=== PATIENT | female | born 1940 | race Caucasian/White ===

== ENCOUNTER 2017-05-26 06:42 | Emergency (ER) | payer MEDICARE, BC ==
[2017-05-26] MEDS ORDERED: NS 0.9% 1000 ML* 1,000 ML IV ONE (07:19)
[2017-05-26] MEDS ORDERED: Albuterol/Ipratropium NEB.SOL* Albuterol 2.5 MG/Ipratropium 0.5 MG 3 ML INH ONE ×2 (07:20→09:30)
[2017-05-26 08:08] LABS: ABS Basophils 0 10^3/ul (0-0.2); ABS Eosinophils 0.4 10^3/ul (0-0.6); ABS Lymphocytes 1.4 10^3/ul (1.0-4.8); ABS Monocytes 0.5 10^3/ul (0-0.8); ABS Neutrophils 2.3 10^3/ul (1.5-7.7); ABS Nucleated RBC 0 10^3/ul; Eosinophil % 7.6 % (0-6); Hematocrit 39 % (35-47); Hemoglobin 13.5 g/dl (12.0-16.0); Lymphocyte % 30.7 % (25-47); Mean Corpuscular HGB Conc 35 g/dl (31-36); Mean Corpuscular Hemoglobin 35 pg (27-31); Mean Corpuscular Volume 99 fL (80-97); Mean Platelet Volume 8 um3 (7.4-10.4); Nucleated Red Blood Cells % 0.1; Platelet Count 120 10^3/ul (150-450); Red Cell Distribution Width 13 % (10.5-15); White Blood Count 4.7 10^3/ul (3.5-10.8)
[2017-05-26 08:30] LABS: EGFR Non-African American 62.3 (>60)
--- NOTE | 2017-05-26 08:37 | RAD ---
Indication: Shortness of breath. Comparison is made with previous exam dated September 14, 2015. 2 views of the chest including dual energy PA views demonstrate no mediastinal shift. Heart is of normal size and configuration. Lung villa demonstrate no pleural, pneumonia or pneumothorax. IMPRESSION: No active cardiopulmonary disease is noted.
[2017-05-26] MEDS ORDERED: methylPREDNISolone 125 MG* 2 ML VIAL IV ONE (09:30)
[2017-05-26] MEDS ORDERED: Albuterol/Ipratropium NEB.SOL* Albuterol 2.5 MG/Ipratropium 0.5 MG 3 ML ONE (09:54)
[2017-05-26 12:12] VITALS: BP 142/77
--- NOTE | 2017-05-26 12:29 | ED ---
David Smith Stephanie, scribed for Quang Ball MD on 05/26/17 at 0743 . Respiratory - HPI Summary HPI Summary: The pt is a 76 y/o F presenting to the ED with c/o cough that began yesterday. The pt reports coughing up fluid that looks like white bubbles since yesterday. This morning, she saw some discolored mucus that came up with her cough. Symptoms include a productive cough, SOB, fever. Pt fell last June 23 and her larynx got constricted post fall. - History of Current Complaint Chief Complaint: EDGeneral Stated Complaint: RESPIRATORY COMPLAINT Time Seen by Provider: 05/26/17 07:07 Hx Obtained From: Patient Onset/Duration: Lasting Days - 1, Still Present Timing: Constant Current Severity: Moderate Pain Intensity: 1 Character: Cough (Productive) Sputum Color: Clear Aggravating Factor(s): Nothing Alleviating Factor(s): Nothing Associated Signs and Symptoms: Fever, SOB - Allergy/Home Medications Allergies/Adverse Reactions: Allergies Allergy/AdvReac Type Severity Reaction Status Date / Time Bee Venom Allergy Severe Anaphylatic Verified 09/14/15 07:36 Shock Oxycodone Allergy Hallucinati Verified 09/14/15 07:36 ons HONEY BEES,WASPS, HORNETS Allergy ANAPHYLACTI Uncoded 09/14/15 07:36 C PMH/Surg Hx/FS Hx/Imm Hx Cardiovascular History: Reports: Hx Hypertension Denies: Hx Pacemaker/ICD Respiratory History: Reports: Hx Asthma, Hx Chronic Obstructive Pulmonary Disease (COPD) - asthma, Other Respiratory Problems/Disorders - MULTIPLE SINUS INFECTIONS Musculoskeletal History: Reports: Hx Arthritis - BILATERAL KNEES, HANDS, NECK, BACK, Hx Fibromyalgia Sensory History: Reports: Hx Contacts or Glasses Denies: Hx Hearing Aid Opthamlomology History: Reports: Hx Contacts or Glasses Neurological History: Reports: Other Neuro Impairments/Disorders - HX OF POLIO 1954 Psychiatric History: Reports: Hx Depression - ON MEDICATION Denies: Hx Panic Disorder - Cancer History Cancer Type, 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 1998 LEFT BREAST SURGERY, INSITU, [facility] [place]. 1999 RIGHT KNEE ARTHROSCOPIC SURGERY, [facility] [place]. 2003 HEART CATHERIZATION, [facility]. 2004 LEFT HAND / INDEX FINGER SURGERY FOR DOG BITE, [facility] [place]. 2004 RIGHT FOOT SURGERY WITH 3 SCREWS. 2006 LEFT KNEE ARTHROSCOPIC SURGERY, [facility] [place]. 2005 FULL SHOULDER REPLACEMENT, [facility]. 2010 RIGHT KNEE ARTHROSCOPIC SURGERY , [facility] [place] Hx Anesthesia Reactions: Yes - DISLOCATION OF JAW WITH INTUBATION, 1973, 2005, 2010 Infectious Disease History: No Infectious Disease History: Reports: Hx Hepatitis - 9 - NO PROBLEMS SINCE, Hx Shingles Denies: Traveled Outside the [place] in Last 30 Days - Family History Known Family History: Positive: Cardiac Disease, Other - Negative: CVA Negative: Diabetes - Social History Alcohol Use: Daily Alcohol Amount: 2-3 drinks per day Hx Substance Use: No Substance Use Type: Reports: None Smoking Status (MU): Never Smoked Tobacco Review of Systems Positive: Fever Positive: Shortness Of Breath, Cough All Other Systems Reviewed And Are Negative: Yes Physical Exam - Summary Physical Exam Summary: Appearance: The patient is well-nourished in no acute distress and in no acute pain. Skin: The skin is warm and dry and skin color reflects adequate perfusion. HEENT: The head is normocephalic and atraumatic. The pupils are equal and reactive. The conjunctivae are clear and without drainage. Nares are patent and without drainage. Mouth reveals moist mucous membranes and the throat is without erythema and exudate. The external ears are intact. The ear canals are patent and without drainage. The tympanic membranes are intact. Neck: the neck is supple with full range of motion and non-tender. There are no carotid bruits. There is no neck vein distension. Respiratory: Chest is non-tender. Decreased breaths sounds with increased E/ I ration. Non-expiratory wheezes. Cardiovascular: Heart is regular rate and rhythm. There is no murmur or rub auscultated. There is no peripheral edema and pulses are symmetrical and equal. Abdomen: The abdomen is soft and non-tender. There are normal bowel sounds heard in all four quadrants and there is no organomegaly palpated. Musculoskeletal: There is no back tenderness noted. Extremities are non-tender with full range of motion. There is good capillary refill. There is no peripheral edema or calf tenderness elicited. Neurological: Patient is alert and oriented to person, place and time. The patient has symmetrical motor strength in all four extremities. Cranial nerves are grossly intact. Deep tendon reflexes are symmetrical and equal in all four extremities. Psychiatric: The patient has an appropriate affect and does not exhibit any anxiety or depression. Triage Information Reviewed: Yes Vital Signs On Initial Exam: Initial Vitals Temp Pulse Resp BP Pulse Ox 97.1 F 57 22 133/99 88 05/26/17 06:45 05/26/17 06:45 05/26/17 06:45 05/26/17 06:45 05/26/17 06:45 Vital Signs Reviewed: Yes - Demar Coma Scale Coma Scale Total: 15 Diagnostics - Vital Signs Vital Signs Temp Pulse Resp BP Pulse Ox 05/26/17 06:45 97.1 F 57 22 133/99 88 - Laboratory Lab Results: Lab Results 05/26/17 05/26/17 05/26/17 Range/Units 07:50 07:50 07:50 WBC 4.7 (3.5-10.8) 10^3/ul RBC 3.90 L (4.0-5.4) 10^6/ul Hgb 13.5 (12.0-16.0) g/dl Hct 39 (35-47) % MCV 99 H (80-97) fL MCH 35 H (27-31) pg MCHC 35 (31-36) g/dl RDW 13 (10.5-15) % Plt Count 120 L (150-450) 10^3/ul MPV 8 (7.4-10.4) um3 Neut % (Auto) 49.4 (38-83) % Lymph % (Auto) 30.7 (25-47) % [place] % (Auto) 11.6 H (1-9) % Eos % (Auto) 7.6 H (0-6) % Baso % (Auto) 0.7 (0-2) % Absolute Neuts (auto) 2.3 (1.5-7.7) 10^3/ul Absolute Lymphs (auto) 1.4 (1.0-4.8) 10^3/ul Absolute Monos (auto) 0.5 (0-0.8) 10^3/ul Absolute Eos (auto) 0.4 (0-0.6) 10^3/ul Absolute Basos (auto) 0 (0-0.2) 10^3/ul Absolute Nucleated RBC 0 10^3/ul Nucleated RBC % 0.1 Sodium 135 (133-145) mmol/L Potassium 4.5 (3.5-5.0) mmol/L Chloride 104 (101-111) mmol/L Carbon Dioxide 21 L (22-32) mmol/L Anion Gap 10 (2-11) mmol/L BUN 26 H (6-24) mg/dL Creatinine 0.88 (0.51-0.95) mg/dL Est GFR ( Amer) 80.1 (>60) Est GFR (Non-Af Amer) 62.3 (>60) BUN/Creatinine Ratio 29.5 H (8-20) Glucose 104 H (70-100) mg/dL Lactic Acid (0.5-2.0) mmol/L Calcium 9.1 (8.6-10.3) mg/dL Total Bilirubin 0.60 (0.2-1.0) mg/dL AST 20 (13-39) U/L ALT 16 (7-52) U/L Alkaline Phosphatase 64 (34-104) U/L Troponin I 0.00 (<0.04) ng/mL B-Natriuretic Peptide 27 ( - 100) pg/mL Total Protein 6.3 L (6.4-8.9) g/dL Albumin 3.9 (3.2-5.2) g/dL Globulin 2.4 (2-4) g/dL Albumin/Globulin Ratio 1.6 (1-3) Influenza A (Rapid) (Negative) Influenza B (Rapid) (Negative) Group A Strep Rapid (Negative) 05/26/17 05/26/17 05/26/17 Range/Units 07:50 08:05 11:32 WBC (3.5-10.8) 10^3/ul RBC (4.0-5.4) 10^6/ul Hgb (12.0-16.0) g/dl Hct (35-47) % MCV (80-97) fL MCH (27-31) pg MCHC (31-36) g/dl RDW (10.5-15) % Plt Count (150-450) 10^3/ul MPV (7.4-10.4) um3 Neut % (Auto) (38-83) % Lymph % (Auto) (25-47) % [place] % (Auto) (1-9) % Eos % (Auto) (0-6) % Baso % (Auto) (0-2) % Absolute Neuts (auto) (1.5-7.7) 10^3/ul Absolute Lymphs (auto) (1.0-4.8) 10^3/ul Absolute Monos (auto) (0-0.8) 10^3/ul Absolute Eos (auto) (0-0.6) 10^3/ul Absolute Basos (auto) (0-0.2) 10^3/ul Absolute Nucleated RBC 10^3/ul Nucleated RBC % Sodium (133-145) mmol/L Potassium (3.5-5.0) mmol/L Chloride (101-111) mmol/L Carbon Dioxide (22-32) mmol/L Anion Gap (2-11) mmol/L BUN (6-24) mg/dL Creatinine (0.51-0.95) mg/dL Est GFR ( Amer) (>60) Est GFR (Non-Af Amer) (>60) BUN/Creatinine Ratio (8-20) Glucose (70-100) mg/dL Lactic Acid 1.2 (0.5-2.0) mmol/L Calcium (8.6-10.3) mg/dL Total Bilirubin (0.2-1.0) mg/dL AST (13-39) U/L ALT (7-52) U/L Alkaline Phosphatase (34-104) U/L Troponin I (<0.04) ng/mL B-Natriuretic Peptide ( - 100) pg/mL Total Protein (6.4-8.9) g/dL Albumin (3.2-5.2) g/dL Globulin (2-4) g/dL Albumin/Globulin Ratio (1-3) Influenza A (Rapid) Negative (Negative) Influenza B (Rapid) Negative (Negative) Group A Strep Rapid Negative (Negative) Result Diagrams: 05/26/17 07:50 05/26/17 07:50 Lab Statement: Any lab studies that have been ordered have been reviewed, and results considered in the medical decision making process. - Radiology CXR Xray Interpretation: No Acute Changes Radiology Interpretation Completed By: Radiologist - No active cardiopulmonary disease is noted. - EKG 06:55 EKG Rhythm: Sinus Rhythm - 89 BPM EKG Interpretation: horizontal axis. Old septal infarct. Disposition - Course Course Of Treatment: Follow up with PCP. Assessment/Plan: Ms. Renae presented with a variety of URI-type C/O. Her breathing was tight with an increased E/I. She was treated with nebs and solumedrol and eventually felt improved. I willl D/C her with antibiotics and a steroid burst. - Diagnoses Provider Diagnoses: Bronchospasm with bronchitis, acute Discharge - Discharge Plan Condition: Stable Disposition: HOME Prescriptions: Albuterol HFA INHALER* [Ventolin HFA Inhaler*] 1 puff INH Q4H PRN #1 inhaler PRN Reason: Shortness Of Breath Clarithromycin TAB* [Biaxin TAB*] 500 mg PO BID #20 tab Methylprednisolone [Medrol Dosepak 4 MG*] 4 mg PO .SEE BORIS INSTRUCTION #1 tab Patient Education Materials: Acute Bronchitis (ED), Bronchospasm (ED) Referrals: Carlos Fernández MD [Primary Care Provider] - The documentation as recorded by the David harrell Stephanie accurately reflects the service I personally performed and the decisions made by , Quang Ball MD.
== END 2017-05-26 12:16 | disposition home or self-care (01) ==
LOC: ED 06:42
DX: J20.9 Acute bronchitis, unspecified (principal); R50.9 Fever, unspecified; R06.02 Shortness of breath; I10 Essential (primary) hypertension; J44.9 Chronic obstructive pulmonary disease, unspecified; F32.9 Major depressive disorder, single episode, unspecified; Z85.3 Personal history of malignant neoplasm of breast; Z96.619 Presence of unspecified artificial shoulder joint; Z88.5 Allergy status to narcotic agent
CPT/HCPCS: 36415; 71046; 80053; 83605; 83880; 84484; 85025; 87040; 87502; 87651; 93005; 94640; 96361; 96374; 99283; A9270-GY; J2930

== ENCOUNTER 2017-12-02 15:44 | Emergency (ER) | payer MEDICARE, BC ==
[2017-12-02] MEDS ORDERED: Cephalexin CAP* 500 MG PO ONE (16:12)
[2017-12-02] MEDS ORDERED: Tetan/Diph/Pertus SYR(Tdap)* 0.5 ML SYR(BOOSTRIX) use SYR IM ONE (16:12)
--- NOTE | 2017-12-02 18:16 | ED ---
Laceration/Wound HPI - HPI Summary HPI Summary: Complains of laceration to right forearm. Patient was trying to put something up on a shelf and caught her arm on an exposed nail she did not know was there. Tetanus status unknown. No anti-coag. Denies loss of sensation or function distally. - History of Current Complaint Stated Complaint: LAC ON RT ARM Time Seen by Provider: 12/02/17 17:26 Hx Obtained From: Patient Mechanism of Injury: Sharp/Blunt Trauma Onset Severity: Mild Current Severity: None Pain Intensity: 0 - Allergy/Home Medications Allergies/Adverse Reactions: Allergies Allergy/AdvReac Type Severity Reaction Status Date / Time oxycodone Allergy Altered Verified 12/02/17 16:01 Mental Status PMH/Surg Hx/FS Hx/Imm Hx Endocrine/Hematology History: Denies: Hx Anticoagulant Therapy Cardiovascular History: Reports: Hx Hypertension Denies: Hx Pacemaker/ICD Respiratory History: Reports: Hx Asthma, Hx Chronic Obstructive Pulmonary Disease (COPD) - asthma, Other Respiratory Problems/Disorders - MULTIPLE SINUS INFECTIONS Musculoskeletal History: Reports: Hx Arthritis - BILATERAL KNEES, HANDS, NECK, BACK, Hx Fibromyalgia Sensory History: Reports: Hx Contacts or Glasses Denies: Hx Hearing Aid Opthamlomology History: Reports: Hx Contacts or Glasses Neurological History: Reports: Other Neuro Impairments/Disorders - HX OF POLIO 1953 Psychiatric History: Reports: Hx Depression - ON MEDICATION Denies: Hx Panic Disorder - Cancer History Cancer Type, 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 1998 LEFT BREAST SURGERY, [facility], [facility] [place]. 1999 RIGHT KNEE ARTHROSCOPIC SURGERY, [facility] [place]. 2003 HEART CATHERIZATION, [facility]. 2004 LEFT HAND / INDEX FINGER SURGERY FOR DOG BITE, [facility] [place]. 2004 RIGHT FOOT SURGERY WITH 3 SCREWS. 2006 LEFT KNEE ARTHROSCOPIC SURGERY, [facility] [place]. 2006 FULL SHOULDER REPLACEMENT, [facility]. 2010 RIGHT KNEE ARTHROSCOPIC SURGERY , [facility] [place] Hx Anesthesia Reactions: Yes - DISLOCATION OF JAW WITH INTUBATION, 1973, 2005, 2010 Infectious Disease History: No Infectious Disease History: Reports: Hx Hepatitis - 1958 - NO PROBLEMS SINCE, Hx Shingles Denies: Traveled Outside the [place] in Last 30 Days - Family History Known Family History: Positive: Cardiac Disease, Other - Negative: CVA Negative: Diabetes - Social History Alcohol Use: None Alcohol Amount: 2-3 drinks per day Hx Substance Use: No Substance Use Type: Reports: None Smoking Status (MU): Never Smoked Tobacco Review of Systems Constitutional: Negative Eyes: Negative ENT: Negative Cardiovascular: Negative Respiratory: Negative Gastrointestinal: Negative Genitourinary: Negative Musculoskeletal: Negative Skin: Other Neurological: Negative Psychological: Normal All Other Systems Reviewed And Are Negative: Yes Physical Exam - Summary Physical Exam Summary: Small puncture wound to the dorsal surface of right forearm. PMS intact distally Triage Information Reviewed: Yes Vital Signs On Initial Exam: Initial Vitals Temp Pulse Resp BP Pulse Ox 98.3 F 90 16 172/93 98 12/02/17 15:58 12/02/17 15:58 12/02/17 15:58 12/02/17 15:58 12/02/17 15:58 Vital Signs Reviewed: Yes Appearance: Positive: Well-Appearing Skin: Positive: Warm Head/Face: Positive: Normal Head/Face Inspection Eyes: Positive: Normal Neck: Positive: Supple Respiratory/Lung Sounds: Positive: Clear to Auscultation Cardiovascular: Positive: Normal Abdomen Description: Positive: Nontender Musculoskeletal: Positive: Normal Neurological: Positive: Normal Psychiatric: Positive: Normal AVPU Assessment: Alert - Demar Coma Scale Best Eye Response: 4 - Spontaneous Best Motor Response: 6 - Obeys Commands Best Verbal Response: 5 - Oriented Coma Scale Total: 15 Procedures - Laceration/Wound Repair 1 Location: upper extremity Description: Stellate Length, Depth and Shape: 1cm x 1cm Betadine Prep?: No - chlorhexidine prep Irrigated w/ Saline (ccs): 20 - chlorhexidine plus saline Laceration/Wound Explored: clean Closure: SteriStrips Number of Sutures: 0 Layer Closure?: No Diagnostics - Vital Signs Vital Signs Temp Pulse Resp BP Pulse Ox 12/02/17 16:53 98.3 F 108 18 178/86 12/02/17 15:58 98.3 F 90 16 172/93 98 - Laboratory Lab Statement: Any lab studies that have been ordered have been reviewed, and results considered in the medical decision making process. Laceration Repair Course/Dx - Course Course Of Treatment: Complains of laceration to right forearm. Patient was trying to put something up on a shelf and caught her arm on an exposed nail she did not know was there. Tetanus status unknown. No anti-coag. Denies loss of sensation or function distally. Small puncture wound. Wound cleaned under pressure with chlorhexidine and saline. Steri-Strips applied. tetanus booster. rx for keflex - Clinical Impression Provider Diagnoses: Laceration Discharge - Sign-Out/Discharge Documenting (check all that apply): Patient Departure - Discharge Plan Condition: Stable Disposition: HOME Prescriptions: Cephalexin CAP* [Keflex CAP*] 500 mg PO TID 5 Days #15 cap Patient Education Materials: Laceration (ED) Referrals: Carlos Fernández MD [Primary Care Provider] - Additional Instructions: Follow up with primary care. Take antibiotics as directed. Return to ED for any new or worsening symptoms. - Billing Disposition and Condition Condition: STABLE Disposition: Home
[2017-12-02 18:34] VITALS: BP 172/88
== END 2017-12-02 18:32 | disposition home or self-care (01) ==
LOC: ED 15:44
DX: S51.811A Laceration without foreign body of right forearm, initial encounter (principal); W45.0XXA Nail entering through skin, initial encounter; Y92.9 Unspecified place or not applicable; Z23 Encounter for immunization; Z88.5 Allergy status to narcotic agent
CPT/HCPCS: 90471; 90715; 99282; A9270-GY

== ENCOUNTER 2018-05-15 07:56 | Emergency (ER) | payer BC, MEDICARE ==
[2018-05-15] MEDS ORDERED: predniSONE TAB* 20 MG PO ONE (08:50)
[2018-05-15] MEDS ORDERED: Acetaminophen TAB* 325 MG PO ONE (08:50)
[2018-05-15] MEDS ORDERED: Ketorolac INJ* 60 MG/2 ML VIAL IM ONE (08:50)
--- NOTE | 2018-05-15 08:59 | ED ---
Back Pain - HPI Summary HPI Summary: Pt here a/ acute on chronic lower back/hip pain. She has been dx'd w/ OA here ( XR's from 04/03/2018 available in system - ordered by Dr. Navarrete). Has been using topical diclofenac and naproxen BID - provides relief for a couple of hours but then pain returns. Difficulty sleeping last night d/t pain - slept in recliner. She is able to ambulate w/ a cane but is painful. Pain radiates down into feet. Denies numbness, tingling, weakness or change in bowel/bladder habits other than constipation. She has discussed her constipation w/ her PCP who rx'd meds - she has not tried these yet but plans to do so. She has been able to toilet and eat on her own and has a friend who helps her with shopping and light cleaning. She has a fall alert bracelet as well as she lives alone. - History of Current Complaint Chief Complaint: EDBackInjuryPain Stated Complaint: LOWER Back Time Seen by Provider: 05/15/18 08:14 Hx Obtained From: Patient Pain Intensity: 10 - Allergies/Home Medications Allergies/Adverse Reactions: Allergies Allergy/AdvReac Type Severity Reaction Status Date / Time oxycodone Allergy Altered Verified 05/15/18 08:05 Mental Status Home Medications: Home Medications Cyclobenzaprine TAB* [Flexeril 10 MG TAB*] 10 mg PO DAILY 05/15/18 [History Confirmed 05/15/18] Duloxetine HCl [Cymbalta] 10 mg PO DAILY 05/15/18 [History Confirmed 05/15/18] Fluticasone/Vilanterol MDI(NF) [Breo Ellipta MDI 200/25(NF)] 1 puff .ROUTE DAILY 05/15/18 [History Confirmed 05/15/18] Omeprazole 20 mg PO DAILY 05/15/18 [History Confirmed 05/15/18] Ranitidine TAB (NF) [Zantac TAB (NF)] 150 mg PO BID 05/15/18 [History Confirmed 05/15/18] PMH/Surg Hx/FS Hx/Imm Hx Previously Healthy: Yes Endocrine/Hematology History: Denies: Hx Anticoagulant Therapy Cardiovascular History: Reports: Hx Hypertension - well controlled per pt w/o med Denies: Hx Pacemaker/ICD Respiratory History: Reports: Hx Asthma - uses inhaled medications, Other Respiratory Problems/Disorders - MULTIPLE SINUS INFECTIONS Musculoskeletal History: Reports: Hx Arthritis - BILATERAL KNEES, HANDS, NECK, BACK, Hips, Hx Fibromyalgia Sensory History: Reports: Hx Contacts or Glasses Denies: Hx Hearing Aid Opthamlomology History: Reports: Hx Contacts or Glasses Neurological History: Reports: Other Neuro Impairments/Disorders - HX OF POLIO 1953 Psychiatric History: Reports: Hx Depression - ON MEDICATION Denies: Hx Panic Disorder - Cancer History Cancer Type, 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 1998 LEFT BREAST SURGERY, [facility], [facility] [place] 1999 RIGHT KNEE ARTHROSCOPIC SURGERY, [facility] [place]. 2003 HEART CATHERIZATION, [facility]. 2004 LEFT HAND / INDEX FINGER SURGERY FOR DOG BITE, [facility] [place]. 2004 RIGHT FOOT SURGERY WITH 3 SCREWS. 2005 LEFT KNEE ARTHROSCOPIC SURGERY, [facility] [place]. 2005 FULL SHOULDER REPLACEMENT, [facility]. 2010 RIGHT KNEE ARTHROSCOPIC SURGERY , [facility] [place] Hx Anesthesia Reactions: Yes - DISLOCATION OF JAW WITH INTUBATION, 1973, 2005, 2010 Infectious Disease History: No Infectious Disease History: Reports: Hx Hepatitis - 1958 - NO PROBLEMS SINCE, Hx Shingles Denies: Traveled Outside the [place] in Last 30 Days - Family History Known Family History: Positive: Cardiac Disease, Other - Negative: CVA Negative: Diabetes - Social History Occupation: Retired Lives: Alone Alcohol Use: Daily Alcohol Amount: 2-3 drinks per day Hx Substance Use: No Substance Use Type: Reports: None Hx Tobacco Use: No Smoking Status (MU): Never Smoked Tobacco Review of Systems Constitutional: Negative Negative: Fever, Chills, Fatigue Eyes: Negative ENT: Negative Cardiovascular: Negative Respiratory: Negative Gastrointestinal: Other - constipation Genitourinary: Negative Positive: Arthralgia, Myalgia Skin: Negative Neurological: Negative Psychological: Normal - concerned but calm All Other Systems Reviewed And Are Negative: Yes Physical Exam Triage Information Reviewed: Yes Vital Signs On Initial Exam: Initial Vitals Temp Pulse Resp BP Pulse Ox 98.6 F 91 18 140/84 97 05/15/18 07:57 05/15/18 07:57 05/15/18 07:57 05/15/18 07:57 05/15/18 07:57 Vital Signs Reviewed: Yes Appearance: Positive: Well-Appearing, Well-Nourished, Pain Distress - none at rest - mild to moderate with palpation Skin: Positive: Warm, Skin Color Reflects Adequate Perfusion, Dry - no ecchymosis, no erythema, no lesions or edema about affected area Head/Face: Positive: Normal Head/Face Inspection Eyes: Positive: EOMI ENT: Positive: Hearing grossly normal Respiratory/Lung Sounds: Positive: Breath Sounds Present Cardiovascular: Positive: Pulses are Symmetrical in both Upper and Lower Extremities. Negative: Leg Edema Left, Leg Edema Right Musculoskeletal: Positive: Strength/ROM Intact, Pain @ - Lt SI joint TTP - spinous pp, Rt SI joint/hip and paraspinal mm are NTTP; pt is able to transition from lying on stretcher to sitting on stretcher to standing w/o assistance Neurological: Positive: Normal, Sensory/Motor Intact, Alert, Oriented to Person Place, Time, CN Intact II-III Psychiatric: Positive: Normal - concerned but polite, pleasant, and cooperative Diagnostics - Vital Signs Vital Signs Temp Pulse Resp BP Pulse Ox 05/15/18 07:57 98.6 F 91 18 140/84 97 - Laboratory Lab Statement: Any lab studies that have been ordered have been reviewed, and results considered in the medical decision making process. Re-Evaluation - Re-Evaluation First Eval Change: Improved - pt reports improvement w/ most movements Back Pain Course/Dx - Course Course Of Treatment: No imaging performed as pt reports this is an acute on chronic issue. She has an XR from last month + for OA in affected area. Relief w / prednisone, toradol and acetaminophen. Will continue NSAID's at home and add steroid to her regimen. She reports she doesn't currently take flexeril but has taken them in the past and would like to try again in case sleep at night becomes an issues. She agrees to f/u w/ PCP and ortho and will return to ED if danger s/sx present. - Diagnoses Provider Diagnoses: Acute exacerbation of chronic low back pain, Hip arthritis Discharge - Sign-Out/Discharge Documenting (check all that apply): Patient Departure - Discharge Plan Condition: Stable Disposition: HOME Prescriptions: Cyclobenzaprine TAB* [Flexeril 10 MG TAB*] 10 mg PO BEDTIME #15 tab predniSONE TAB* [Deltasone 20 MG TAB*] 40 mg PO DAILY #10 tab Patient Education Materials: Osteoarthritis (ED) Referrals: Carlos Fernández MD [Primary Care Provider] - Additional Instructions: Take medications as directed Follow-up with PCP this week - call Tuesday to schedule an appointment *If you have difficulty toileting or feeding yourself, you may contact [facility] at *If you have numbness, tingling, weakness or change in bowel/bladder habits, return to the ED - Billing Disposition and Condition Condition: STABLE Disposition: Home
[2018-05-15 10:39] VITALS: BP 138/85
== END 2018-05-15 10:38 | disposition home or self-care (01) ==
LOC: ED 07:56
DX: M54.5 Low back pain (principal); G89.29 Other chronic pain; M25.559 Pain in unspecified hip; I10 Essential (primary) hypertension; M16.10 Unilateral primary osteoarthritis, unspecified hip
CPT/HCPCS: 96372; 99282; A9270-GY; J1885; J7512

== ENCOUNTER 2018-11-18 06:42 | Emergency (ER) | payer MEDICARE, BC ==
[2018-11-18] MEDS ORDERED: Ibuprofen TAB* 600 MG PO ONE (07:49)
[2018-11-18 08:09] VITALS: BP 158/103
--- NOTE | 2018-11-18 12:17 | ED ---
Lower Extremity - HPI Summary HPI Summary: Patient is a 78yo female who presents to the ED with left toe pain. She states she had bunion surgery to the right toe and this feels similar. She states she needs surgery to the left bunion as well and this is the location of the pain, however she states she's been unable to deal with the pain at home with Tylenol with past few days. She is requesting pain medication. She denies any history of gout. She endorses some redness to the area, but denies any streaking or other ecchymosis. Denies any trauma. - History of Current Complaint Chief Complaint: EDExtremityLower Stated Complaint: LEFT FOOT PAIN PER PT Time Seen by Provider: 11/18/18 07:17 Hx Obtained From: Family/Ceramic Artist Mechanism Of Injury: Unknown Onset of Pain: Days Onset/Duration: Days Severity Initially: Moderate Severity Currently: Moderate Pain Intensity: 8 Pain Scale Used: 0-10 Numeric Timing: Constant Location: Is Discrete @ - left medial toe pain Associated Signs And Symptoms: Positive: Swelling, Redness. Negative: Bruising Aggravating Factor(s): Standing, Ambulation Able to Bear Weight: Yes - Risk Factors Gout Risk Factors: Negative DVT Risk Factors: Negative Septic Arthritis Risk Factor: Negative - Allergies/Home Medications Allergies/Adverse Reactions: Allergies Allergy/AdvReac Type Severity Reaction Status Date / Time oxycodone AdvReac Severe Altered Verified 11/18/18 06:58 Mental Status Home Medications: Home Medications Amitriptyline TAB* [Elavil TAB*] 75 mg PO BEDTIME 11/18/18 [History Confirmed ] PMH/Surg Hx/FS Hx/Imm Hx Previously Healthy: Yes Endocrine/Hematology History: Denies: Hx Anticoagulant Therapy, Hx Diabetes Cardiovascular History: Reports: Hx Hypertension Denies: Hx Pacemaker/ICD Respiratory History: Reports: Hx Asthma - uses inhaled medications, Hx Chronic Obstructive Pulmonary Disease (COPD) - asthma, Other Respiratory Problems/ Disorders - MULTIPLE SINUS INFECTIONS History: Denies: Hx Renal Disease Musculoskeletal History: Reports: Hx Arthritis - BILATERAL KNEES, HANDS, NECK, BACK, Hips, Hx Back Problems, Hx Fibromyalgia Sensory History: Reports: Hx Contacts or Glasses Denies: Hx Hearing Aid Opthamlomology History: Reports: Hx Contacts or Glasses Neurological History: Reports: Other Neuro Impairments/Disorders - HX OF POLIO 1952, PAIN CLINIC PT Psychiatric History: Reports: Hx Depression - ON MEDICATION Denies: Hx Panic Disorder - Cancer History Cancer Type, 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 1998 LEFT BREAST SURGERY, INSITU, [facility] [place]. 1999 RIGHT KNEE ARTHROSCOPIC SURGERY, [facility] [place]. 2003 HEART CATHERIZATION, [place]. 2004 LEFT HAND / INDEX FINGER SURGERY FOR DOG BITE, [facility] [place]. 2004 RIGHT FOOT SURGERY WITH 3 SCREWS. 2005 LEFT KNEE ARTHROSCOPIC SURGERY, [facility] [place]. 2005 FULL SHOULDER REPLACEMENT, [facility]-RIGHT. 2011 RIGHT KNEE ARTHROSCOPIC SURGERY, [facility] – [place]. 2012 BILATERAL KNEE REPLACEMENT Hx Anesthesia Reactions: Yes - DISLOCATION OF JAW WITH INTUBATION, 1973, 2005, 2010 Infectious Disease History: No Infectious Disease History: Reports: Hx Hepatitis - 1958 - NO PROBLEMS SINCE, Hx Shingles Denies: Traveled Outside the in Last 30 Days - Family History Known Family History: Positive: Cardiac Disease, Other - Negative: CVA Negative: Diabetes - Social History Occupation: Unemployed Lives: Alone Alcohol Use: Daily Alcohol Amount: 14 per week Hx Substance Use: No Substance Use Type: Reports: None Hx Tobacco Use: No Smoking Status (MU): Never Smoked Tobacco Review of Systems Constitutional: Negative Negative: Fever, Chills, Fatigue, Skin Diaphoresis Negative: Palpitations, Chest Pain Negative: Shortness Of Breath, Cough Genitourinary: Negative Positive: no symptoms reported, see HPI Positive: Arthralgia - left metatarsal pain Skin: Negative Positive: Other - erythema to the left metatarsal time Neurological: Negative All Other Systems Reviewed And Are Negative: Yes Physical Exam Triage Information Reviewed: Yes Vital Signs On Initial Exam: Initial Vitals Temp Pulse Resp BP Pulse Ox 96.3 F 94 18 137/99 96 11/18/18 06:45 11/18/18 06:45 11/18/18 06:45 11/18/18 06:45 11/18/18 06:45 Vital Signs Reviewed: Yes Appearance: Positive: Well-Appearing, Well-Nourished Skin: Positive: Warm Head/Face: Positive: Normal Head/Face Inspection Eyes: Positive: EOMI, Conjunctiva Clear Neck: Positive: Supple, No Lymphadenopathy Respiratory/Lung Sounds: Positive: Clear to Auscultation, Breath Sounds Present Cardiovascular: Positive: RRR, Pulses are Symmetrical in both Upper and Lower Extremities Musculoskeletal: Positive: Pain @ - left metatarsal pain Neurological: Positive: Sensory/Motor Intact, Alert, Oriented to Person Place, Time, Speech Normal Psychiatric: Positive: Affect/Mood Appropriate Diagnostics - Vital Signs Vital Signs Temp Pulse Resp BP Pulse Ox 11/18/18 08:09 97.6 F 92 18 158/103 97 11/18/18 08:05 158/103 11/18/18 07:35 157/103 11/18/18 07:07 103 93 11/18/18 07:05 97 131/82 97 11/18/18 06:45 96.3 F 94 18 137/99 96 - Laboratory Lab Statement: Any lab studies that have been ordered have been reviewed, and results considered in the medical decision making process. Lower Extremity Course/Dx - Course Course Of Treatment: Drinks course of treatment, the patient's evaluated for left medial toe pain over the left metatarsal. There is slight redness to the area, however this is not warm or inflamed. No pain on direct palpation of the area. Slightly swollen. Patient is able to flex and extend at the ankle as well as the left metatarsal. No history of gout. She states she has been taking Tylenol, however has not been taking any ibuprofen or other NSAIDs. Encouraged incidence S first-line treatment, however if this is not improving her symptoms, she will use tramadol prescribed to her. She will call her PCP and construction project mgr on Tuesday morning to secure appointments. - Diagnoses Differential Diagnosis/HQI/PQRI: Positive: Osteomyelitis Provider Diagnoses: Pain in metatarsus of left foot Discharge - Sign-Out/Discharge Documenting (check all that apply): Patient Departure Patient Received Moderate/Deep Sedation with Procedure: No - Discharge Plan Condition: Stable Disposition: HOME Prescriptions: Ibuprofen 600 mg PO TID PRN #30 tablet MDD 3 PRN Reason: Pain traMADol TAB* [Ultram*] 50 mg PO Q12H PRN #12 tab MDD 2 PRN Reason: Pain Patient Education Materials: [place] (ED) Referrals: Carlos Fernández MD [Primary Care Provider] - Additional Instructions: As discussed, you will need follow up as soon as possible with your construction project mgr Ibuprofen 600mg three times daily x 3-4 days Tramadol 50mg twice daily (use before bed to help with sleep) - Billing Disposition and Condition Condition: STABLE Disposition: Home
== END 2018-11-18 08:40 | disposition home or self-care (01) ==
LOC: ED 06:42
DX: M79.675 Pain in left toe(s) (principal); I10 Essential (primary) hypertension; Z79.899 Other long term (current) drug therapy
CPT/HCPCS: 99282; A9270-GY

== ENCOUNTER 2018-11-20 07:04 | Emergency (ER) | payer MEDICARE, BC ==
[2018-11-20 07:35] LABS: ABS Eosinophils 0.1 10^3/ul (0-0.6); ABS Lymphocytes 1.4 10^3/ul (1.0-4.8); ABS Monocytes 0.5 10^3/ul (0-0.8); Eosinophil % 2.1 %; Hematocrit 42 % (35-47); Hemoglobin 14.4 g/dL (12.0-16.0); Mean Corpuscular HGB Conc 35 g/dL (31-36); Mean Corpuscular Hemoglobin 33 pg (27-31); Mean Corpuscular Volume 95 fL (80-97); Mean Platelet Volume 8.2 fL (7.4-10.4); Nucleated Red Blood Cells % 0.1; Platelet Count 173 10^3/uL (150-450); Red Blood Count 4.41 10^6 /uL (3.70-4.87); Red Cell Distribution Width 13 % (10-15)
[2018-11-20 07:39] LABS: INR 1.01 (0.82-1.09)
[2018-11-20 07:51] LABS: Albumin 3.9 g/dL (3.2-5.2); Albumin/Globulin Ratio 1.5 (1-3); BUN/Creatinine Ratio 29.9 (8-20); Calcium 9.5 mg/dL (8.6-10.3); EGFR African American 87.5 (>60); EGFR Non-African American 72.3 (>60); Globulin 2.6 g/dL (2-4); Potassium 3.9 mmol/L (3.5-5.0); Total Bilirubin 0.8 mg/dL (0.2-1.0); Total Protein 6.5 g/dL (6.4-8.9)
[2018-11-20 07:53] LABS: Troponin I 0.01 ng/mL (<0.04)
[2018-11-20 10:38] VITALS: BP 155/88
--- NOTE | 2018-11-21 06:51 | ED ---
HPI Chest Pain - HPI Summary HPI Summary: This patient is a 78-year-old F with a PMH of fibromyalgia and chronic pain presenting to the ED with misternal chest pain x several weeks. Symptoms are not aggravated with movement or better with rest. Not improved by nitroglycerin. She states she took 1 nitroglycerin prior to arrival, which did not improve her symptoms. Sxs are 3/10, aching, non-radiating. No history of GERD. She states she has had a catheterization several years ago, but this was clear. The catheterization was followed by a failed stress test. She does state she has a f/u appt with a natural resource manager in 9 days for a stress test and ECHO. This was scheduled d/t her peristent chest pain sxs. However, patient admits this has only been present consistently x 2 weeks, she has had this chest pain before and was seen by her PCP, Dr. Fernández who scheduled the ECHO/ stress test appt. She denies cardiac disease or HTN. She remains ambulatory, eating and drinking well. - History of Current Complaint Chief Complaint: EDChestPainROMI Time Seen by Provider: 11/20/18 07:18 Hx Obtained From: Patient, Family/Acquisition Advisor Onset/Duration: Started Hours Ago Timing: Constant Initial Severity: Moderate Current Severity: Moderate Pain Intensity: 0 Pain Scale Used: 0-10 Numeric Chest Pain Location: Mid Sternal Chest Pain Radiates: No Character: Dull/Aching Aggravating Factor(s): Nothing Alleviating Factor(s): Nothing Associated Signs and Symptoms: Positive: Negative - Risk Factors Pulmonary Embolism Risk Factors: Negative TAD Risk Factors: Negative - Allergy/Home Medications Allergies/Adverse Reactions: Allergies Allergy/AdvReac Type Severity Reaction Status Date / Time oxycodone AdvReac Severe Altered Verified 11/20/18 07:23 Mental Status Home Medications: Home Medications Alendronate Sodium 70 mg PO WEEKLY 11/20/18 [History Confirmed 11/20/18] raNITIdine HCl [Ranitidine HCl] 150 mg PO DAILY 11/20/18 [History Confirmed 06/10] PMH/Surg Hx/FS Hx/Imm Hx Previously Healthy: Yes Endocrine/Hematology History: Denies: Hx Anticoagulant Therapy, Hx Diabetes Cardiovascular History: Reports: Hx Hypertension Denies: Hx Pacemaker/ICD Respiratory History: Reports: Hx Asthma - uses inhaled medications, Hx Chronic Obstructive Pulmonary Disease (COPD) - asthma, Other Respiratory Problems/ Disorders - MULTIPLE SINUS INFECTIONS History: Denies: Hx Renal Disease Musculoskeletal History: Reports: Hx Arthritis - BILATERAL KNEES, HANDS, NECK, BACK, Hips, Hx Back Problems, Hx Fibromyalgia Sensory History: Reports: Hx Contacts or Glasses Denies: Hx Hearing Aid Opthamlomology History: Reports: Hx Contacts or Glasses Neurological History: Reports: Other Neuro Impairments/Disorders - HX OF POLIO 1953, PAIN CLINIC PT Psychiatric History: Reports: Hx Depression - ON MEDICATION Denies: Hx Panic Disorder - Cancer History Cancer Type, 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 1998 LEFT BREAST SURGERY, INSITU, [facility] [place]. 1999 RIGHT KNEE ARTHROSCOPIC SURGERY, [facility] [place]. 2003 HEART CATHERIZATION, [place]. 2004 LEFT HAND / INDEX FINGER SURGERY FOR DOG BITE, [facility] – [place]. 2004 RIGHT FOOT SURGERY WITH 3 SCREWS. 2005 LEFT KNEE ARTHROSCOPIC SURGERY, [facility] – [place]. 2005 FULL SHOULDER REPLACEMENT, [facility]-RIGHT. 2010 RIGHT KNEE ARTHROSCOPIC SURGERY, [facility] – [place]. 2012 BILATERAL KNEE REPLACEMENT Hx Anesthesia Reactions: Yes - DISLOCATION OF JAW WITH INTUBATION, 1974, 2005, 2010 - Immunization History Hx Pertussis Vaccination: No Immunizations Up to Date: Yes Infectious Disease History: No Infectious Disease History: Reports: Hx Hepatitis - 1958 - NO PROBLEMS SINCE, Hx Shingles Denies: Traveled Outside the [place] in Last 30 Days - Family History Known Family History: Positive: Cardiac Disease, Other - Negative: CVA Negative: Diabetes - Social History Occupation: Unemployed Lives: With Family Alcohol Use: Daily Alcohol Amount: 14 per week Hx Substance Use: No Substance Use Type: Reports: None Hx Tobacco Use: No Smoking Status (MU): Never Smoked Tobacco Review of Systems Constitutional: Negative Negative: Fever, Chills, Fatigue, Skin Diaphoresis Positive: Chest Pain. Negative: Palpitations Negative: Shortness Of Breath, Cough Genitourinary: Negative Positive: no symptoms reported, see HPI Negative: Arthralgia, Myalgia Skin: Negative Neurological: Negative All Other Systems Reviewed And Are Negative: Yes Physical Exam Triage Information Reviewed: Yes Vital Signs On Initial Exam: Initial Vitals Temp Pulse Resp BP Pulse Ox 97.6 F 95 18 152/85 100 11/20/18 07:10 11/20/18 07:10 11/20/18 07:10 11/20/18 07:10 11/20/18 07:10 Vital Signs Reviewed: Yes Appearance: Positive: Well-Appearing, Well-Nourished Skin: Positive: Warm, Skin Color Reflects Adequate Perfusion Head/Face: Positive: Normal Head/Face Inspection Eyes: Positive: EOMI, Conjunctiva Clear Neck: Positive: Supple, No Lymphadenopathy Respiratory/Lung Sounds: Positive: Clear to Auscultation, Breath Sounds Present Cardiovascular: Positive: Pulses are Symmetrical in both Upper and Lower Extremities Musculoskeletal: Positive: Normal, Strength/ROM Intact Neurological: Positive: Sensory/Motor Intact, Alert, Oriented to Person Place, Time Psychiatric: Positive: Affect/Mood Appropriate AVPU Assessment: Alert Diagnostics - Vital Signs Vital Signs Temp Pulse Resp BP Pulse Ox 11/20/18 10:46 97.6 F 88 15 155/88 95 11/20/18 10:34 85 15 155/88 94 11/20/18 10:22 85 18 160/93 95 11/20/18 10:00 91 13 94 11/20/18 09:52 80 20 157/80 94 11/20/18 09:21 86 13 147/92 94 11/20/18 09:00 80 16 96 11/20/18 08:21 81 13 153/83 91 11/20/18 08:00 88 18 94 11/20/18 07:52 95 12 144/99 95 11/20/18 07:24 83 17 94 11/20/18 07:22 86 15 151/76 97 11/20/18 07:10 97.6 F 95 18 152/85 100 - Laboratory Lab Results: Lab Results 11/20/18 11/20/18 11/20/18 Range/Units 07:27 07:27 07:27 WBC 6.0 (3.5-10.8) 10^3/uL RBC 4.41 (3.70-4.87) 10^6 /uL Hgb 14.4 (12.0-16.0) g/dL Hct 42 (35-47) % MCV 95 (80-97) fL MCH 33 H (27-31) pg MCHC 35 (31-36) g/dL RDW 13 (10-15) % Plt Count 173 (150-450) 10^3/uL MPV 8.2 (7.4-10.4) fL Neut % (Auto) 65.8 % Lymph % (Auto) 24.0 % [place] % (Auto) 7.5 % Eos % (Auto) 2.1 % Baso % (Auto) 0.6 % Absolute Neuts (auto) 4.0 (1.5-7.7) 10^3/ul Absolute Lymphs (auto) 1.4 (1.0-4.8) 10^3/ul Absolute Monos (auto) 0.5 (0-0.8) 10^3/ul Absolute Eos (auto) 0.1 (0-0.6) 10^3/ul Absolute Basos (auto) 0.0 (0-0.2) 10^3/ul Absolute Nucleated RBC 0.0 10^3/ul Nucleated RBC % 0.1 INR (Anticoag Therapy) 1.01 (0.82-1.09) Sodium 142 (135-145) mmol/L Potassium 3.9 (3.5-5.0) mmol/L Chloride 109 (101-111) mmol/L Carbon Dioxide 27 (22-32) mmol/L Anion Gap 6 (2-11) mmol/L BUN 23 (6-24) mg/dL Creatinine 0.77 (0.51-0.95) mg/dL Est GFR ( Amer) 87.5 (>60) Est GFR (Non-Af Amer) 72.3 (>60) BUN/Creatinine Ratio 29.9 H (8-20) Glucose 125 H (70-100) mg/dL Calcium 9.5 (8.6-10.3) mg/dL Total Bilirubin 0.80 (0.2-1.0) mg/dL AST 20 (13-39) U/L ALT 17 (7-52) U/L Alkaline Phosphatase 72 (34-104) U/L Troponin I 0.01 (<0.04) ng/mL Total Protein 6.5 (6.4-8.9) g/dL Albumin 3.9 (3.2-5.2) g/dL Globulin 2.6 (2-4) g/dL Albumin/Globulin Ratio 1.5 (1-3) 11/20/18 Range/Units 09:57 WBC (3.5-10.8) 10^3/uL RBC (3.70-4.87) 10^6 /uL Hgb (12.0-16.0) g/dL Hct (35-47) % MCV (80-97) fL MCH (27-31) pg MCHC (31-36) g/dL RDW (10-15) % Plt Count (150-450) 10^3/uL MPV (7.4-10.4) fL Neut % (Auto) % Lymph % (Auto) % [place] % (Auto) % Eos % (Auto) % Baso % (Auto) % Absolute Neuts (auto) (1.5-7.7) 10^3/ul Absolute Lymphs (auto) (1.0-4.8) 10^3/ul Absolute Monos (auto) (0-0.8) 10^3/ul Absolute Eos (auto) (0-0.6) 10^3/ul Absolute Basos (auto) (0-0.2) 10^3/ul Absolute Nucleated RBC 10^3/ul Nucleated RBC % INR (Anticoag Therapy) (0.82-1.09) Sodium (135-145) mmol/L Potassium (3.5-5.0) mmol/L Chloride (101-111) mmol/L Carbon Dioxide (22-32) mmol/L Anion Gap (2-11) mmol/L BUN (6-24) mg/dL Creatinine (0.51-0.95) mg/dL Est GFR ( Amer) (>60) Est GFR (Non-Af Amer) (>60) BUN/Creatinine Ratio (8-20) Glucose (70-100) mg/dL Calcium (8.6-10.3) mg/dL Total Bilirubin (0.2-1.0) mg/dL AST (13-39) U/L ALT (7-52) U/L Alkaline Phosphatase (34-104) U/L Troponin I 0.00 (<0.04) ng/mL Total Protein (6.4-8.9) g/dL Albumin (3.2-5.2) g/dL Globulin (2-4) g/dL Albumin/Globulin Ratio (1-3) Result Diagrams: 11/20/18 07:27 11/20/18 07:27 Lab Statement: Any lab studies that have been ordered have been reviewed, and results considered in the medical decision making process. Chest Pain Course/Dx - Course Course Of Treatment: This patient is evaluated for midsternal chest pain which is nonradiating, present times several weeks, rated at 3/10 and rated as an aching. She does state she has an appointment for an echo and a stress test next week d/t her persistent chest pain. Nondiaphoretic and nontoxic appearing. Patient is alert and oriented, ambulating well. She does not appear to be in distress or shortness breath. Vital signs heart rate 83, respirations 20, 94% on room air at 157/80. Patient states she takes medications for fibromyalgia, however denies any other medications. During the ED course, labs are obtained including a troponin of 0.01. This was repeated in 3 hours at 0.00. Chest x-ray obtained: No evidence for pulmonary edema or pneumonia. Indeterminate 0.7 cm density at the right lower lung zone. Consider chest CT for further assessment. CT chest obtained which shows no evidence for acute finding. No abnormalities seen to correspond with a nodular density noted on the prior chest x-ray study which likely represents summation artifact. Heart score = 2 which is low risk for MACE. Patient is safe for discharge at this time and will f/u with cardiology. - Chest Pain Differential Diagnosis/HQI/PQRI: ACS, Angina - Diagnoses Provider Diagnoses: Angina at rest Discharge - Sign-Out/Discharge Documenting (check all that apply): Patient Departure Patient Received Moderate/Deep Sedation with Procedure: No - Discharge Plan Condition: Stable Disposition: HOME Patient Education Materials: Chest Pain (ED) Referrals: Carlos Fernández MD [Primary Care Provider] - Additional Instructions: Please follow up with PCP regarding your chest pain If you develop any worsening or changing symptoms, you need to return to the ED immediately Keep your appt on November 29 - Billing Disposition and Condition Condition: STABLE Disposition: Home
== END 2018-11-20 10:46 | disposition home or self-care (01) ==
LOC: ED 07:04
DX: I20.9 Angina pectoris, unspecified (principal); R91.8 Other nonspecific abnormal finding of lung field; M79.7 Fibromyalgia; G89.29 Other chronic pain; I10 Essential (primary) hypertension; J45.909 Unspecified asthma, uncomplicated; J44.9 Chronic obstructive pulmonary disease, unspecified; Z79.899 Other long term (current) drug therapy; Z88.5 Allergy status to narcotic agent
CPT/HCPCS: 36415; 71045; 71250; 80053; 84484; 85025; 85610; 93005; 99283

== ENCOUNTER 2019-01-21 09:06 | Emergency (ER) | payer MEDICARE, BC ==
--- OUTSIDE RECORDS SUMMARY | 2019-01-21 09:28 | XMS REPORT | Summary of Care ---
:1940 Author Organization [facility] Address [address] [place] [address] Care Team Providers Name Role Phone Carlos Fernández MD Primary Care Provider Mauro Ospina Unavailable Osorio Corrigan MD Unavailable Unavailable Reason for Visit Reason Comments Rash pt has rash on face and arms ( 4-5 days ). felt like her body was on fire earlier today Encounter Details Date Type Department Care Team Description 01/15/2019 Office Visit [place] Briana Canseco Drug rash (Primary Dx) Practice PA-C [address] [place] [address] [place] [address] [phone] Allergies Active Allergy Reactions Severity Noted Date Comments Bee Unknown Reaction 12/01/2017 Hydrocodone Other 02/19/2016 Over sedation; knocks her right out. Methylprednisolone Rash High 01/15/2019 Omeprazole Other 11/29/2016 Patient can not remember Oxycodone Other 09/14/2015 documented as of this encounter (statuses as of 01/15/2019) Medications Medication Sig Dispensed Refills Start Date End Date Status daily vitamin PO TABS Take 1 Tab by 0 Active mouth DAILY. docusate sodium Take 100 mg by 0 Active (COLACE) 100 MG Oral mouth TWICE Cap DAILY. Calcium Take by mouth 0 Active Carb-Cholecalciferol TWICE DAILY. 600-500 MG-UNIT Oral TABLET SR 24 HR Nutritional Take 1 Each by 60 Bottle 11 10/21/2016 Active Supplements (ENSURE mouth TWICE CLEAR) Oral Liquid DAILY. PROAIR HFA 108 (90 INHALE 1 PUFF 8.5 Inhaler 3 12/07/2017 Active Base) MCG/ACT EVERY 4 HOURS Inhalation Aero Soln NEEDED FOR FOR SHORTNESS OF BREATH fluticasone (FLONASE) [place] 2 Sprays in 3 Bottle 3 10/17/2018 Active 50 MCG/ACT Nasal nose DAILY. Suspension BREO ELLIPTA 200-25 INHALE 1 PUFF BY 60 Each 5 10/25/2018 Active MCG/INH Inhalation MOUTH EVERY DAY AEROSOL POWDER, BREATH ACTIVATED nitroglycerin PLACE 1 TAB UNDER 90 Tab 0 10/25/2018 Active (NITROSTAT) 0.4 MG TONGUE EVERY FIVE Sublingual SL Tab MINUTES NEEDED (ESOPHOGEAL SPASM). tramadol (ULTRAM) 50 Take 50 mg by 0 Active MG Oral Tab mouth EVERY TWELVE HOURS NEEDED. amitriptyline Take 1 Tab by 90 Tab 5 12/06/2018 Active (ELAVIL, ENDEP) 25 MG mouth EVERY Oral Tab BEDTIME. alendronate (FOSAMAX) TAKE 1 TABLET BY 12 Tab 3 12/07/2018 Active 70 MG Oral Tab MOUTH ONE TIME PER WEEK duloxetine (CYMBALTA) TAKE 1 CAPSULE BY 90 Cap 1 12/13/2018 Active 30 MG Oral CAPSULE MOUTH EVERY DAY ENTERIC COATED PARTICLESIndications: Generalized anxiety disorder documented as of this encounter (statuses as of 01/15/2019) Active Problems Problem Noted Date Pseudophakia 08/10/2018 Fibromyalgia 09/01/2017 Generalized anxiety disorder 09/01/2017 Mild persistent asthma without complication 07/08/2017 Spondylosis of lumbar region without myelopathy or radiculopathy 02/16/2017 Overview: Dr Torres [facility] pain clinic S/p [facility] winter 2018 Post concussion syndrome 11/29/2016 Hx of dysplastic nevus 11/29/2016 Tinnitus of both ears 09/16/2015 Overview: ENT consult [place] fall 2014 extensive evaluation 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 Overview: Right foot sensory neuropathy documented as of this encounter (statuses as of 01/15/2019) Resolved Problems Problem Noted Date Resolved Date Bursitis of right hip 02/16/2017 09/01/2017 Osteoporosis, unspecified 09/29/2011 10/01/2017 Overview: t score -2.1 bone density scan 2007 alendronate prescription Osteoporosis, 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 09/24/2009 Overview: Dexa scan 02/27: t score -2.1 hip Depression 12/31/2008 07/22/2017 Overview: Citalopram treatment [address] [place] [address] Noelle Alfordo 11/26/2008 05/05/2010 Overview: 195 Infectious mononucleosis 11/26/2008 05/05/2010 Overview: 1958 Mild intermittent asthma 08/01/2007 07/08/2017 Overview: Albuterol as needed [facility] jun 2016 Personal history of tobacco use, presenting hazards to health 08/01/2007 Overview: Documented Tobacco use, quit in 1996 Fibromyalgia 08/01/2007 09/01/2017 Internal Hemorrhoids 08/01/2007 09/24/2009 Hyperlipidemia 08/01/2007 02/16/2011 Primary osteoarthritis of shoulder 04/11/2006 02/16/2011 Overview: Right shoulder documented as of this encounter (statuses as of 01/15/2019) Immunizations Name Administration Dates Next Due DTAP Vaccine 09/20/2004 Influenza (IM) Preservative Free 01/21/2018, 02/16/2011, 03/05/2010, 03/27/2009 Influenza Vaccine High Dose 01/27/2017 Influenza Virus Vaccine - Whole 03/26/2008, 03/18/2007 Influenza Virus Vaccine Pres Free 6-35 02/28/2012 Months PNEUMOCOCCAL POLYSACCHARIDE VACCINE 12/21/2004 Pneumococcal Conjugate Vaccine 01/14/2017 ZOSTER (ZOSTAVAX) VACCINE 02/20/2016, 02/20/2009 documented as of this encounter Social History Tobacco Use Types Packs/Day Years Used Date Former Smoker Smokeless Tobacco: Never Used Comments: quit years ago Alcohol Use Drinks/Week oz/Week Comments Yes 7 Glasses of wine 14.0 7 Shots of liquor Sex Assigned at Date Recorded Not on file Job Start Date Occupation Industry Not on file Not on file Not on file Travel History Travel Start Travel End No recent travel history available. documented as of this encounter Last Filed Vital Signs Vital Sign Reading Time Taken Comments Blood Pressure 140/80 01/15/2019 4:41 PM EDT Pulse 92 01/15/2019 4:41 PM EDT Temperature 37.6 01/15/2019 4:41 PM EDT C (99.6 F) Respiratory Rate - - Oxygen Saturation 96% 01/15/2019 4:41 PM EDT Inhaled Oxygen Concentration - - Weight 66.7 kg (147 lb) 01/15/2019 4:41 PM EDT Height 163.8 cm (5' 4.5") 01/15/2019 4:41 PM EDT Body Mass Index 24.84 01/15/2019 4:41 PM EDT documented in this encounter Patient Instructions Patient InstructionsDodgBriana eldridge PA-C - 01/15/2019 4:40 PM EDTStop medrol dose pack Avoid heat and direct sunlight OTC benadrly pills, 25mg, 1 every 6 hrs -- will cause drowsiness Apply cold compress, do not scrub at loose skin Apply OTC Sarna lotion F/U with Dr. Fernández and field property loss specialist Wed documented in this encounter Progress Notes Briana Robertson PA-C - 01/15/2019 4:40 PM EDT PATIENT: Vicky Renae : 1940 DATE OF SERVICE: 01/15/2019 REFERRING PRACTITIONER: Estuardo PRIMARY CARE PROVIDER: Carlos Fernández CHIEF COMPLAINT: Chief Complaint Patient presents with Rash pt has rash on face and arms ( 4-5 days ). felt like her body was on fire earlier today Subjective HISTORY OF PRESENT ILLNESS: Vicky Renae is a 78-y.o. female who presents with red rash on face and arms, flaking skin x 4-5 days This morning rash was burning sensation Has been applying OTC Oil of Olay moisturizer, no improvement Was prescribed metrol dose alexandru by Pain doctor 10 days ago Stopped taking 3 days ago No trouble breathing or swallowing Denies new soaps, detergents Denies fever, chills, nausea, vomiting, diarrhea, chest pains, SOB Past Medical History: Diagnosis Date Asthma 08/01/2007 Fibromyalgia 08/01/2007 History of breast surgery Hormones and synthetic substitutes causing adverse effect in therapeutic use tomaxafin, femara Hyperlipidemia 08/01/2007 Hyperlipidemia 08/01/2007 Internal Hemorrhoids 08/01/2007 Late effects of acute poliomyelitis 08/01/2007 Malignant Neoplasm of Breast (Female) 08/01/2007 Nulliparity Other postprocedural status(V45.89) lt breast ca 1998 Personal history of tobacco use, presenting hazards to health 08/01/2007 Documented Tobacco use, quit in 1995 Postmenopausal Primary osteoarthritis of shoulder 04/11/2006 Special screening for malignant neoplasms, colon 08/01/2007 Colonoscopy performed 12/21/05 Past Surgical History: Procedure Laterality Date BUNIONECTOMY NEC right foot EGD N/A 09/08/2016 Procedure: ENDOSCOPY UPPER GI with dilitation; Surgeon: Juan Manuel Browne MD [facility]; Location: [facility] GI OR EGD N/A 02/06/2018 Procedure: EGD with biopsy; Surgeon: Hollie Niño MD; Location: [facility] MAIN OR OK APPENDECTOMY OK MASTECTOMY, PARTIAL 1998 Left breast carcinoma with tamoxifen therapy OK REMV JAW JOINT CARTILAGE 09/02/05 Left knee lateral meniscectomy/chondroplasty patella OK TOTAL ABDOM HYSTERECTOMY TOTAL KNEE REPLACEMENT Bilateral 2011 TOTAL SHOULDER REPLACEMENT titanium Family History Problem Relation Age of Onset Cancer Mother breast mets to stomach and colon Breast Cancer Mother Ovarian Cancer Mother Heart Mother Angina Heart Father [place] No Known Problems Sister Dementia Sister Current Outpatient Medications Medication Sig alendronate (FOSAMAX) 70 MG Oral Tab TAKE 1 TABLET BY MOUTH ONE TIME PER WEEK amitriptyline (ELAVIL, ENDEP) 25 MG Oral Tab Take 1 Tab by mouth EVERY BEDTIME. BREO ELLIPTA 200-25 MCG/INH Inhalation AEROSOL POWDER, BREATH ACTIVATED INHALE 1 PUFF BY MOUTH EVERY DAY Calcium Carb-Cholecalciferol 600-500 MG-UNIT Oral TABLET SR 24 HR Take by mouth TWICE DAILY. daily vitamin PO TABS Take 1 Tab by mouth DAILY. docusate sodium (COLACE) 100 MG Oral Cap Take 100 mg by mouth TWICE DAILY. duloxetine (CYMBALTA) 30 MG Oral CAPSULE ENTERIC COATED PARTICLES TAKE 1 CAPSULE BY MOUTH EVERY DAY fluticasone (FLONASE) 50 MCG/ACT Nasal Suspension [place] 2 Sprays in nose DAILY. nitroglycerin (NITROSTAT) 0.4 MG Sublingual SL Tab PLACE 1 TAB UNDER TONGUE EVERY FIVE MINUTES NEEDED (ESOPHOGEAL SPASM). Nutritional Supplements (ENSURE CLEAR) Oral Liquid Take 1 Each by mouth TWICE DAILY. PROAIR HFA 108 (90 Base) MCG/ACT Inhalation Aero Soln INHALE 1 PUFF EVERY 4 HOURS NEEDED FOR FOR SHORTNESS OF BREATH tramadol (ULTRAM) 50 MG Oral Tab Take 50 mg by mouth EVERY TWELVE HOURS NEEDED. No current facility-administered medications for this visit. Allergies Allergen Reactions Bee Unknown Reaction Hydrocodone Other Over sedation; knocks her right out. Omeprazole Other Patient can not remember Oxycodone Other Social History Socioeconomic History Marital status: Spouse name: Not on file Number of children: Not on file Years of education: Not on file Highest education level: Not on file Occupational History Not on file Social Needs Financial resource strain: Not on file Food insecurity: Worry: Not on file Inability: Not on file Transportation needs: Medical: Not on file Non-medical: Not on file Tobacco Use Smoking status: Former Smoker Smokeless tobacco: Never Used Tobacco comment: quit years ago Substance and Sexual Activity Alcohol use: Yes Alcohol/week: 14.0 standard drinks Types: 7 Glasses of wine, 7 Shots of liquor per week Drug use: No Sexual activity: Not Currently Partners: Male Lifestyle Physical activity: Days per week: Not on file Minutes per session: Not on file Stress: Not on file Relationships Social connections: Talks on phone: Not on file Gets together: Not on file Attends mandaen service: Not on file Active member of club or organization: Not on file Attends meetings of clubs or organizations: Not on file Relationship status: Not on file Intimate partner violence: Fear of current or ex partner: Not on file Emotionally abused: Not on file Physically abused: Not on file Forced sexual activity: Not on file Other Topics Concern Back Care Not Asked Bike Helmet Not Asked Blood Transfusions Not Asked Caffeine Concern Not Asked Exercise Yes Comment: walks daily Hobby Hazards Yes Comment: likes to ride motorboat on the [place] Travel Not Asked Service Not Asked Occupational Exposure Not Asked Seat Belt Not Asked Self-Exams Not Asked Sleep Concern Not Asked Special Diet No Stress Concern No Weight Concern Not Asked Social History Narrative Lives in [place], [place]- Does not go to [place] anymore r/t health issues Retired from [employer] 3 step sons; not in close contact, not local REVIEW OF SYSTEMS: Skin: positive diffuse erythema, flaking skin on face and both arms -- see hpi Eyes: negative visual blurring Ears/Nose/Throat: negative rhinorrhea, sore throat, sinus pressure, post nasal drip Respiratory: positive cough, asthma Cardiovascular: negative chest pain Gastrointestinal: negative abdominal pain, constipation, diarrhea, nausea or vomiting Genitourinary: negative burning on urination, dysuria or vaginal discharge Musculoskeletal: positive arthritis/joint pain Neurologic: negative numbness or tingling of feet or hands Psychiatric: positive anxiety Hematologic/Lymphatic/Immunologic: positive allergies Endocrine: negative diabetes or hot flashes/sweats Objective PHYSICAL EXAMINATION: VITALS: BP 140/80 (BP Location: Left arm, Patient Position: Sitting) | Pulse 92 | Temp 99.6 F(37.6 C) | Ht 5' 4.5" (1.638 m) | Wt 147 lb (66.7 kg ) | SpO2 96% | BMI 24.84 kg/m Body mass index is 24.84 kg/m. General appearance - alert, moderate distress, cooperative, oriented times 3 Skin - Diffuse erythema, dry, flaking skin on face and both arms, pruritic and mildly tender Head - Normocephalic. No masses, lesions, tenderness or abnormalities Eyes - conjunctivae/corneas clear. PERRL, EOM's intact. Lungs - Good diaphragmatic excursion. Lungs clear. Chest symmetrical. Normal breath sounds. Heart - RRR. No murmurs, clicks or gallops. No peripheral edema. . IMPRESSION: ICD-9-CM ICD-10-CM 1. Drug rash 693.0 L27.0 Plan PLAN: Stop medrol dose pack Avoid heat and direct sunlight OTC benadrly pills, 25mg, 1 every 6 hrs -- will cause drowsiness Apply cold compress, do not scrub at loose skin Apply OTC Sarna lotion F/U with Dr. Fernández and field property loss specialist Billy Author: Briana Robertson PA-C 01/15/2019 16:47 documented in this encounter Plan of Treatment Date Type Specialty Care Team Description 01/17/2019 Office Visit Internal Medicine Carlos Fernández MD [address] [place] [address] [phone] 02/26/2019 Office Visit Pulmonary Loy Mallory MD [address] [address] 04/04/2019 Chronic Care Management Family Practice 08/17/2019 Ocular Visit Optometry Justyn Serrano, OD [address] [address] Health Maintenance Due Date Last Done Comments HIV SCREENING 09/24/1955 ZOSTER IMMUNIZATION SERIES 04/16/2016 02/20/2016, 02/20/2009 (2 of 3) INFLUENZA VACCINE (#1) 2019 02/01/2018, 01/21/2018, 01/27/2017, Additional history exists DEPRESSION SCREENING 04/03/2019 04/03/2018 FALL RISK ASSESSMENT 04/03/2019 04/03/2018, 04/03/2018 MEDICARE ANNUAL WELLNESS 04/03/2019 04/03/2018, 01/14/2017, VISIT 09/27/2014, Additional history exists OSTEOPOROSIS SCREENING 02/24/2026 02/25/2016, 10/06/2011, 08/26/2009 (Previously completed) PNEUMOCOCCAL 65+YRS Completed 01/14/2017, 12/21/2004 HPV IMMUNIZATION SERIES Aged Out No longer eligible based on patient's age to complete this topic MENINGOCOCCAL VACCINE IMM Aged Out No longer eligible based on patient's age to complete this topic documented as of this encounter Goals Goal Patient Goal Associated Recent Patient-Stated? Author Type Problems Progress Blood Pressure Blood Pressure Essential 140/80 No [place], < 140/90 hypertension, (01/15/2019 Carlos Delgado, benign 4:41 PM EDT) Note: Hypertension Care Plan Based on the patient's clinical history and according to JNC 8 guidelines target blood pressure goal is less than 140/90. Based on the patient's last blood pressure of BP: 124/60 mmHg the patient is at at goal. As your provider, it is important that I advise you regarding: your current medications and help you with any challenges you may face taking your medications as directed (ex. instructions, cost, side effects, and interactions). Important lifestyle changes: exercise, weight reduction and dietary sodium reduction your clinical goals and how you can achieve success: weight reduction and exercise plan medication management: N/A diet only patient education/self-management tools provided: Current self-management tools adequate To successfully manage my Hypertension I will: monitor my blood pressure daily, understanding that my goal is less than 140/ 90 per my healthcare provider's recommendation. I will schedule an appointment with my provider if consistent abnormal readings greater than 160/100. take medications every day as prescribed by my healthcare provider and if unable to take them I will discuss with my provider. monitor for symptoms of chest pain, chest tightness/pressure, irregular heartbeat, persistent dizziness, radiating arm pain, and neck or jaw pain. If any of these symptoms are noticed I will seek medical attention immediately by calling 911 exercise/walk 30 minutes 6 day(s) per week. If I experience chest pain, chest tightness, or shortness of breath, I will seek medical attention immediately. follow a diet rich in fruits, vegetables, and low-fat dairy products with reduced content of saturated & total fat. I will reduce my sodium intake daily. An example is the DASH diet. To obtain more information please refer to the DASH Eating Plan listed in Educational Resources. record my blood pressure results. Danika is safe and secure way for you to do this in your medical record online. try to obtain an ideal body weight. My recent weight was Weight: 157 lb 8 oz (71.442 kg). My weight loss goal for my next office visit is 155. limit alcohol consumption. For men two drinks per day and women one drink per day. if currently smoking, will discuss how to quit smoking with my healthcare provider and work towards quitting. Educational Resources: National Heart, Lung, & Blood [place] http://nhlbi.nih.gov/hbp/index.html The DASH Diet Eating Plan http://www.nhlbi.nih.gov/health/health-topics/ topics/dash/ Academy of Nutrition & DIetetics http://eatright.org National Smoking Cessation Site http://smokefree.gov Blood Pressure < Blood Pressure 140/80 (01/15/2019 No Jesenia Ayon FNP 150/90 4:41 PM EDT) Note: This is an individualized treatment (blood pressure) goal for Vicky Renae: Displayed above (on the left) is your goal for blood pressure control. Your most recent blood pressure is also shown above, on the right. You should try to achieve blood pressures that are lower than your goal listed above (on the left). Depression screen (PHQ-9) total score < 5 Depression No Jesenia Ayon FNP Note: This is an individualized treatment (depression) goal for Vicky Renae: Displayed above is your goal for a depression screening (PHQ-9) score that would indicate good control of your depression. Keep a regular sleep schedule Lifestyle No Jesenia Ayon FNP Note: This is an individualized lifestyle goal for Vicky Renae: Please maintain a regular sleep schedule. This may help with some symptoms of depression. Take all prescribed medications as Self-management No Jesenia Ayon FNP directed Note: This is an individualized self-management goal for Vicky Renae: Please take all prescribed medications as directed. 1. Do not skip doses. If you cannot afford your medications, talk with your doctor. 2. Use a pill reminder system such as a pill box if needed. Your pharmacist can help you with this. 3. Contact your Pharmacy 5 days before your medication runs out. If you cannot take your medications for any reasons, talk with your doctor. 4. Please bring all of your medication bottles and inhalers (or a list of all your medications/inhalers) with you to every visit. Potential barriers to meeting all of your care plan goals will continue to be addressed on an ongoing basis. 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
--- OUTSIDE RECORDS SUMMARY | 2019-01-21 09:28 | XMS REPORT | Continuity of Care Document ---
:1940 External Reference #:[id number] Author Name Charlie Navarrete M.D. (transmitted by agent of provider Caprice Emerson) Address [address] [place] [address] Care Team Providers Name Role Phone Carlos Fernández MD - Internal Care Team Information Multimedia Engineer [phone] Medicine Problems Active Problems Provider Date Obstructive hydrocephalus Vassilios MD Cecy Onset: 08/03/2017 Social History Type Date Description Comments Sex Unknown ETOH Use Drinks 1 Alcoholic Beverage Per Day Tobacco Use Start: Unknown End: Patient is a former smoker Unknown Recreational Drug Use Denies Drug Use Smoking Status Reviewed: 01/17/19 Patient is a former smoker Exercise Type/Frequency Exercises regularly Allergies, Adverse Reactions, Alerts Active Allergies Reaction Severity Comments Date Oxycodone 10/01/2013 Inactive Allergies NKDA 05/14/2013 Medications Active Medications SIG Qnty Indications Ordering Provider Date Lumbosacral Corset Use for support M54.41 Charlie Navarrete M.D. 08/14/2018 as needed Lumbosacral Corset use support prn Charlie Navarrete M.D. 08/14/2018 dx code: 54.41 Amoxicillin 4 tablets 1 hour 8caps Charlie Navarrete M.D. 05/14/2013 500mg Capsules before dental work Loy Canseco MD 200-25mcg/Inh Aerosol Prednisone 1 by mouth every Unknown 20mg Tablets am and one po qhs Asmanex Twisthaler 30 Carlos Fernández, Metered Doses 220mcg/Inh Aerosol Omeprazole Carlos Fernández, 20mg Capsules DR FARNSWORTH Nitroglycerin 1 sl q5mins x3 Unknown 0.4mg Tablets as needed for Sub chest pain Ranitidine 150 Maximum one by mouth Unknown Strength twice a day 150mg Tablets Propranolol HCL ER 1 by mouth every Unknown 60mg day Caps ER 24HR Glucosamine Chondroitin Unknown Advanced Naproxen Unknown Calcium 1000 + D Unknown Vitamin D3 High Potency Unknown Fish Oil Unknown Epipen 2-Gaston Unknown Montelukast Sodium Unknown Fosamax Unknown Amitriptyline HCL Unknown Ventolin HFA Unknown Fluticasone Propionate Unknown Medications Administered in Office Medication SIG Qnty Indications Ordering Provider Date Depomedrol 40MG Christiano Acuna MD 10/23/2018 Injection Depomedrol 40MG Charlie Navarrete M.D. 11/17/2015 Injection Immunizations Description No Information Available Vital Signs Date Vital Result Comment 01/17/2019 2:16pm Height 66 inches 5'6" Weight 158.00 lb Respiratory Rate 20 /min Body Temperature 97.8 F Pain Level 10 BMI (Body Mass Index) 25.5 kg/m2 10/23/2018 1:36pm Height 66 inches 5'6" Weight 158.00 lb Heart Rate 60 /min BP Systolic Sitting 130 mmHg BP Diastolic Sitting 81 mmHg Respiratory Rate 16 /min Pain Level 6 BMI (Body Mass Index) 25.5 kg/m2 Results Test Date Facility Test Result H/L Range Note Xray 10/23/2018 Technician Inventory Specialist In House Inj/Aspir Major JT Or Bursa W/ <pending> US Procedures Date Code Description Status 10/23/2018 [id number] Inj/Aspir Major JT Or Bursa W/ US Completed Medical Devices Description No Information Available Encounters Type Date Location Provider Dx Diagnosis Office Visit 10/18/2018 Orthopedic Charlie Navarrete M.D. M16.11 Unilateral primary 11:00a [facility] oste[facility], right hip M54.41 Lumbago with sciatica, right side M25.551 Pain in right hip Office Visit 08/28/2018 3:15p [facility] Charlie Navarrete M25.551 Pain in right [facility] M.D. hip M54.5 Low back pain M16.11 Unilateral primary osteoarthritis, right hip Office Visit 08/14/2018 1:45p Orthopedic Charlie Navarrete, M54.41 Lumbago with [facility] sciatica, right side M16.11 Unilateral primary osteoarthritis, right hip W19.xxxA Unspecified fall, initial encounter Assessments Date Code Description Provider 01/17/2019 M54.41 Lumbago with sciatica, right side Charlie Navarrete M.D. 01/17/2019 M16.11 Unilateral primary osteoarthritis, right Charlie Navarrete M.D. hip 10/23/2018 M16.11 Unilateral primary osteoarthritis, right Christiano Acuna MD hip 10/23/2018 M54.41 Lumbago with sciatica, right side Christiano Acuna MD 10/23/2018 M25.551 Pain in right hip Christiano Acuna MD 10/18/2018 M16.11 Unilateral primary osteoarthritis, right Charlie Navarrete M.D. hip 10/18/2018 M54.41 Lumbago with sciatica, right side Charlie Navarrete M.D. 10/18/2018 M25.551 Pain in right hip Charlie Navarrete M.D. 08/28/2018 M25.551 Pain in right hip Charlie Navarrete M.D. 08/28/2018 M54.5 Low back pain Charlie Navarrete M.D. 08/28/2018 M16.11 Unilateral primary osteoarthritis, right Charlie Navarrete M.D. hip 08/14/2018 M54.41 Lumbago with sciatica, right side Charlie Navarrete M.D. 08/14/2018 M16.11 Unilateral primary osteoarthritis, right Charlie Navarrete M.D. hip 08/14/2018 W19.xxxA Unspecified fall, initial encounter Charlie Navarrete M.D. Plan of Treatment 01/17/2019 - Charlie Navarrete M.D.M54.41 Lumbago with sciatica, right sideFollow up: Follow up: Will call you after discussion with Dr. Fernández and Julito. Make sure that you are usingyour walker for too much back, hip, right groin cvbjvV66.11 Unilateral primary osteoarthritis, right hipNew Xrays:Pelvis 1-2 VWS , Ordered: 01/17/19 Functional Status Description No Information Available Mental Status Description No Information Available Referrals Refer to Reason for Referral Status Appt Date Roger Sam MD See MRI, Right lumbar nerve pinching Created [address] [place] [id number] [phone]
--- OUTSIDE RECORDS SUMMARY | 2019-01-21 09:28 | XMS REPORT | Summary of Care ---
:1940 Author Organization [facility] Address [address] [facility] [place] [address] Care Team Providers Name Role Phone Carlos Fernández MD Primary Care Provider Mauro Ospina Unavailable Osorio Corrigan MD Unavailable Unavailable Reason for Visit Reason Comments Rash Follow up. Patient diagnosed with drug rash by Jaki on 01/15/2019. She states it is not getting better joie bourne whole bodyaches. Encounter Details Date Type Department Care Team Description 01/17/2019 Office Visit [facility] Carlos Fernández Drug-induced skin rash (Primary Dx); Rosalie Delgado MD Essential hypertension, benign; [address] Chronic pain syndrome; [place], [place] [id number] [place] [address] Primary osteoarthritis of hip, unspecified laterality; [phone] Osteopenia, unspecified location Allergies Active Allergy Reactions Severity Noted Date Comments Bee Unknown Reaction 12/01/2017 Hydrocodone Other 02/19/2016 Over sedation; knocks her right out. Methylprednisolone Rash High 01/15/2019 Omeprazole Other 11/29/2016 Patient can not remember Oxycodone Other 09/14/2015 documented as of this encounter (statuses as of 01/17/2019) Medications Medication Sig Dispensed Refills Start Date [...] FOR FOR SHORTNESS OF BREATH fluticasone (FLONASE) [place] 2 Sprays in 3 Bottle 3 10/17/2018 [...] as of this encounter (statuses as of 01/17/2019) Active Problems Problem Noted Date Pseudophakia 08/10/2018 Fibromyalgia 09/01/2017 Mild persistent asthma without complication 07/08/2017 Spondylosis of lumbar region without myelopathy or radiculopathy 02/16/2017 Overview: Dr Gilbert [facility] pain clinic S/p [facility] winter 2018 Post concussion syndrome 11/29/2016 Hx of dysplastic nevus 11/29/2016 Tinnitus of both ears 09/16/2015 Overview: ENT consult [place] fall 2014 extensive evaluation 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 Overview: Right foot sensory neuropathy documented as of this encounter (statuses as of 01/17/2019) Resolved Problems Problem Noted Date Resolved Date Generalized anxiety disorder 09/01/2017 01/17/2019 Bursitis of right hip 02/16/2017 09/01/2017 Osteoporosis, unspecified 09/29/2011 10/01/2017 Overview: t score -2.1 bone density scan 2007 alendronate prescription Osteoporosis, 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 09/24/2009 Overview: Dexa scan 02/27: t score -2.1 hip Depression 12/31/2008 07/22/2017 Overview: Citalopram treatment [address] [place] [address] Noelle Alfordo 11/26/2008 05/05/2010 Overview: 1953 Infectious mononucleosis 11/26/2008 05/05/2010 Overview: 1959 Mild intermittent asthma 08/01/2007 07/08/2017 Overview: Albuterol as needed [facility] jun 2016 Personal history of tobacco use, presenting hazards to health 08/01/2007 Overview: Documented Tobacco use, quit in 1995 Fibromyalgia 08/01/2007 09/01/2017 Internal Hemorrhoids 08/01/2007 09/24/2009 Hyperlipidemia 08/01/2007 02/16/2011 Primary osteoarthritis of shoulder 04/11/2006 02/16/2011 Overview: Right shoulder documented as of this encounter (statuses as of 01/17/2019) Immunizations Name Administration Dates Next Due DTAP [...] Sign Reading Time Taken Comments Blood Pressure - - Pulse - - Temperature - - Respiratory Rate - - Oxygen Saturation - - Inhaled Oxygen Concentration - - Weight 66.7 kg (147 lb) 01/17/2019 1:16 PM EDT Height 163.8 cm (5' 4.5") 01/17/2019 1:16 PM EDT Body Mass Index 24.84 01/17/2019 1:16 PM EDT documented in this encounter Patient Instructions Patient InstructionsCarlos Fernández MD - 01/17/2019 1:20 PM EDTYou had allergic skin reaction to methylprednisolone Ask pain clinic about tramadol dosing Talk to Dr navarrete about the hip pain Bone density scan this fall follow up me 2 weeks later Use benadryl (diphenhydramine) and sarna cream See dermatology for the rashElectronically signed by Carlos Fernández MD at 1:46 PM EDT documented in this encounter Progress Notes Carlos Fernández MD - 01/17/2019 1:20 PM EDT PATIENT: Vicky Renae : 1940 DATE OF SERVICE: 01/17/2019 CHIEF COMPLAINT: Chief Complaint Patient presents with Rash Follow up. Patient diagnosed with drug rash by Jaki on 01/15/2019. She states it is not getting better annd hher whole bodyaches. Subjective HISTORY OF PRESENT ILLNESS: Vicky Renae is a 78-y.o. female. HPI desquanating skin reaction due to medrol dose alexandru given to her by Andrzej gilbert at [facility] pain clinic She has seen Veronika PATE here and [facility] dermatology Dr Hall office she has follow up there She is using over the counter oral benadryl (diphenhydramine) three times daily And sarna lotion with partial relief of skin burn She asks about bone density scan and need to use bisphosphonate She had osteopenia on bone density scan two years ago She asks for tramadol now using 50 mg twice daily Through pain clinic and still having right hip pain she will see orthopedic surgery [place] later today Patient Active Problem List Diagnosis Breast cancer (HCC) Post-poliomyelitis syndrome Osteoarthritis Osteopenia S/P right knee arthroscopy Essential hypertension, benign Tinnitus of both ears 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 nitroglycerin (NITROSTAT) [...] medications for this visit. Allergies Allergen Reactions Methylprednisolone Rash Bee Unknown Reaction Hydrocodone Other Over sedation; [...] file Gets together: Not on file Attends pentecostalism service: Not on file Active member of [...] Not Asked Social History Narrative Lives in [place], [place]- Does not go to [place] anymore r/t health issues Retired from [employer] 3 step sons; not in close contact, not local ROS no gastro-intestinal symptoms no genito-urinary symptoms Objective PHYSICAL EXAM: VITALS: Ht 5' 4.5" (1.638 m) | Wt 147 lb (66.7 kg) | BMI 24.84 kg/m Body mass index is 24.84kg/m. Physical Exam diffuse desquamating skin rash arms face and legs no bullae no exudate Mental status exam; she is alert, orient to time, person and place. Normal thought content, speech, affect, mood and dress are noted. I spent 25 minutes with the patient, greater than half of this in direct face to face counseling addressing the current condition and the plan of care. ASSESSMENT / IMPRESSION: ICD-9-CM ICD-10-CM 1. Drug-induced skin rash follow up dermatology this Week continue benadryl ( diphenhydramine) and topical sarna for now no medro oral in the future 693.0 L27.0 2. Essential hypertension, benign 401.1 I10 3. Chronic pain syndrome follow up pain clinic 338.4 G89.4 4. Primary osteoarthritis of hip, unspecified laterality 715.15 M16.10 5. Osteopenia, unspecified location bone density scan and continue current medication alendronate For now 733.90 M85.80 XR DEXA SCAN 1 OR MORE SITES Patient Instructions You had allergic skin reaction to methylprednisolone Ask pain clinic about tramadol dosing Talk to Dr navarrete about the hip pain Bone density scan this fall follow up me 2 weeks later Use benadryl (diphenhydramine) and sarna cream See dermatology for the rash Carlos Fernández MD 01/17/2019 14:26 documented in this encounter Plan of Treatment Date Type Specialty Care Team Description 02/26/2019 Office Visit Pulmonary Loy Mallory MD [address] [place] [address] 04/04/2019 Chronic Care Management Family Practice 08/17/2019 Ocular Visit Optometry Justyn Serrano, OD [address] [place] [address] Name Type Priority Associated Diagnoses Order Schedule XR DEXA SCAN 1 OR Imaging Routine Osteopenia, unspecified 1 Occurrences starting MORE SITES location 01/17/2019 until 01/17/2020 Health Maintenance Due Date Last Done Comments [...] Blood Pressure Blood Pressure Essential 140/80 No Carmichaels, < 140/90 hypertension, (01/15/2019 Carlos Delgado, benign [...] Educational Resources: National Heart, Lung, & Blood [place] http://nhlbi.nih.gov/hbp/index.html The DASH Diet Eating Plan http://www.nhlbi.nih.gov/health/health-topics/ topics/dash/ Academy of Nutrition & DIetetics http://eatright.org National Smoking Cessation Site http://smokefree.gov Blood Pressure < Blood Pressure 140/80 (01/15/2019 Jesenia Nazario FNP 150/90 4:41 PM EDT) Note: This [...] filedocumented in this encounter Visit Diagnoses Diagnosis Drug-induced skin rash - Primary Toxic erythema Essential hypertension, benign Chronic pain syndrome Primary osteoarthritis of hip, unspecified laterality Osteopenia, unspecified location documented in this encounter (Work) documented as of this encounter Advance Directives Type Date Recorded Patient Nail Cutter Explanation Advance Directives 10/08/2013 12:33 PM Health Care Proxy
--- NOTE | 2019-01-21 09:42 | ED ---
Complex/Multi-Sys Presentation - HPI Summary HPI Summary: This pt is a 78 Y/O F presenting to [facility] with her daughter and a CC of pain from head to toe. She states that it feels like her veins are on fire and she currently has a 4/10 severity. She states that she took Tramadol at 0600 today with no affect. She states that she has had been having redness over her body which is still present today. Her medication that she received after her visit to the pain clinic due to her medication wearing off. She received a new medication that she believes caused a reaction on 01/05/19. The new medication that she was taking was methylprednisolone and was given to her on 01/05/19. She had aggravated symptoms with all movements and with any item or substance touching her body since 01/17/19. She was unable to sleep yesterday due to the aggravated pain. She denies any incontinence, new fevers, chills, N/V, and headaches. She has a PMHx of fibromyalgia. She states that she does not want Prednisone. She also has a Hx of dementia and when reviewing the discharge packet from the pain clinic the doctor noted that the pt was too demented to fully understand the plan moving forward. THIS PT IS A LEVEL 5 CAVEAT DUE TO HER DEMENTIA AND THE HPI WILL BE CONSIDERED WITH SOME SCRUTINY DUE TO HER DISEASE. - History Of Current Complaint Chief Complaint: EDGeneral Time Seen by Provider: 01/21/19 09:29 Hx Obtained From: Patient Hx From Patient Unobtainable Due To: Dementia - The pt's dementia is noted and her HPI will be considered with some scutiny due to her disease. Therefore she is a levle 5 caveat. Onset/Duration: Sudden Onset, Lasting Weeks - 3, Worse Since - 01/17/19 Timing: Constant Severity Currently: Moderate - 4/10 Severity Initially: Moderate Location: Pain At: - everywhere per pt Aggravating Factor(s): movement and any foreign body or substance touching her Alleviating Factor(s): nothing Associated Signs And Symptoms: Positive: Recent Medication Changes - Methylprednisolone began on 01/05/19, Other - POSITIVE: Pt reports pain over her entire body described as "burning nerves". Rash over her entire body. NEGATIVE : fevers, chills, headaches. Negative: Nausea, Vomiting, Fever - Allergies/Home Medications Allergies/Adverse Reactions: Allergies Allergy/AdvReac Type Severity Reaction Status Date / Time methylprednisolone Allergy Severe See Comment Verified 01/21/19 09:43 oxycodone AdvReac Severe Altered Verified 01/21/19 09:43 Mental Status PMH/Surg Hx/FS Hx/Imm Hx Previously Healthy: Yes Endocrine/Hematology History: Denies: Hx Anticoagulant Therapy, Hx Diabetes Cardiovascular History: Reports: Hx Hypertension Denies: Hx Pacemaker/ICD Respiratory History: Reports: Hx Asthma - uses inhaled medications, Hx Chronic Obstructive Pulmonary Disease (COPD) - asthma, Other Respiratory Problems/ Disorders - MULTIPLE SINUS INFECTIONS History: Denies: Hx Renal Disease Musculoskeletal History: Reports: Hx Arthritis - BILATERAL KNEES, HANDS, NECK, BACK, Hips, Hx Back Problems, Hx Fibromyalgia Sensory History: Reports: Hx Contacts or Glasses Denies: Hx Hearing Aid Opthamlomology History: Reports: Hx Contacts or Glasses Neurological History: Reports: Hx Dementia, Other Neuro Impairments/Disorders - HX OF POLIO 1952, PAIN CLINIC PT Psychiatric History: Reports: Hx Depression - ON MEDICATION Denies: Hx Panic Disorder - Cancer History Cancer Type, Location and Year: INSITU BREAST CA Hx Chemotherapy: Yes - Surgical History Surgery Procedure, Year, and Place: 1978 HYSTERECTOMY, [facility] [place]. [place] LEFT BREAST SURGERY, INSITU, [facility] [place]. 1999 RIGHT KNEE ARTHROSCOPIC SURGERY, [facility] [place]. 2003 HEART CATHERIZATION, [facility]. 2004 LEFT HAND / INDEX FINGER SURGERY FOR DOG BITE, [facility] [place]. 2004 RIGHT FOOT SURGERY WITH 3 SCREWS. 2005 LEFT KNEE ARTHROSCOPIC SURGERY, [facility] [place]. 2005 FULL SHOULDER REPLACEMENT, [facility]. 2010 RIGHT KNEE ARTHROSCOPIC SURGERY, [facility] [place]. 2012 BILATERAL KNEE REPLACEMENT Hx Anesthesia Reactions: Yes - DISLOCATION OF JAW WITH INTUBATION, 1973, 2005, 2010 Infectious Disease History: No Infectious Disease History: Reports: Hx Hepatitis - 1958 - NO PROBLEMS SINCE, Hx Shingles Denies: Traveled Outside the [place] in Last 30 Days - Family History Known Family History: Positive: Cardiac Disease, Other - Negative: CVA Negative: Diabetes - Social History Occupation: Retired Alcohol Use: Weekly Alcohol Amount: 7 Hx Substance Use: No Substance Use Type: Reports: None Hx Tobacco Use: No Smoking Status (MU): Never Smoked Tobacco Review of Systems - ROS Summary Review of Systems Summary: A FULL ROS IS UNOBTAINABLE DUE TO THE PT'S PRE-EXSISTING DEMENTIA Negative: Fever, Chills Negative: Vomiting, Nausea Positive: Arthralgia, Myalgia Positive: Rash - Pt states she had a rash over her body since 01/17/19 Negative: Headache All Other Systems Reviewed And Are Negative: Yes Physical Exam - Summary Physical Exam Summary: A FULL PE IS UNOBTAINABLE DUE TO THE PT'S PRE-EXSISTING DEMENTIA Triage Information Reviewed: Yes Vital Signs On Initial Exam: Initial Vitals Temp Pulse Resp BP Pulse Ox 97.9 F 77 16 126/83 98 01/21/19 09:07 01/21/19 09:07 01/21/19 09:07 01/21/19 09:07 01/21/19 09:07 Vital Signs Reviewed: Yes Completion Of Physical Exam Limited Due To: Dementia Diagnostics - Vital Signs Vital Signs Temp Pulse Resp BP Pulse Ox 01/21/19 09:07 97.9 F 77 16 126/83 98 - Laboratory Result Diagrams: 01/21/19 10:12 01/21/19 10:12 Lab Statement: Any lab studies that have been ordered have been reviewed, and results considered in the medical decision making process. Complex Multi-Symp Course/Dx Course Of Treatment: Ms. Perkins presented complaining of severe pain. She primarily complains of pain in the lower extremities but said that it was everywhere. She was recently started on a Medrol Dosepak and appears to have had some sort of allergic reaction to it. It was stopped she was nontoxic in appearance here with stable vitals. She was given parenteral ketorolac while labs were obtained. Her CRP is quite elevated at 186. This is nonspecific and her white count is normal. She felt nearly 100% improved after the shot. I recommended she take the Naprosyn that she has been prescribed and has not been taking and follow up with her PCP. - Diagnoses Provider Diagnoses: Lumbar radiculopathy Discharge ED - Sign-Out/Discharge Documenting (check all that apply): Patient Departure - Discharge Patient Received Moderate/Deep Sedation with Procedure: No - Discharge Plan Condition: Stable Disposition: HOME Patient Education Materials: Lumbar Radiculopathy (ED) Referrals: Carlos Fernández MD [Primary Care Provider] - 3 Days Additional Instructions: Follow up with Primary Care Physician in 2-3 days. RETURN TO THE ED FOR ANY NEW OR WORSENING SYMPTOMS. - Billing Disposition and Condition Condition: STABLE Disposition: Home - Attestation Statements Document Initiated by Scribe: Yes Documenting Scribe: Shania Leon Provider For Whom Scribe is Documenting (Include Credential): Quang Ball MD Scribe Attestation: Guy Smith Gayatri Prakash, scribed for Quang Ball MD on 01/21/19 at 1344. Scribe Documentation Reviewed: Yes Provider Attestation: The documentation as recorded by the dmitryibe, Shania Leon accurately reflects the service I personally performed and the decisions made by , Quang Ball MD Status of Scribe Document: Viewed
[2019-01-21] MEDS ORDERED: Ketorolac INJ* 30 MG/ML 1 ML VIAL IV PUSH ONE (10:02)
[2019-01-21 10:23] LABS: ABS Lymphocytes 1.3 10^3/ul (1.0-4.8); ABS Neutrophils 7.2 10^3/ul (1.5-7.7); Eosinophil % 0.1 %; Hematocrit 41 % (35-47); Hemoglobin 14.4 g/dL (12.0-16.0); Lymphocyte % 13.3 %; Mean Corpuscular HGB Conc 35 g/dL (31-36); Mean Corpuscular Hemoglobin 34 pg (27-31); Mean Corpuscular Volume 96 fL (80-97); Mean Platelet Volume 8.2 fL (7.4-10.4); Platelet Count 163 10^3/uL (150-450); Red Blood Count 4.29 10^6 /uL (3.70-4.87); Red Cell Distribution Width 13 % (10-15); White Blood Count 9.5 10^3/uL (3.5-10.8)
[2019-01-21 10:46] LABS: Albumin 3.8 g/dL (3.2-5.2); Calcium 9.7 mg/dL (8.6-10.3); Potassium 4.1 mmol/L (3.5-5.0); Total Bilirubin 1.2 mg/dL (0.2-1.0)
[2019-01-21 10:52] LABS: Albumin/Globulin Ratio 1.3 (1-3); BUN/Creatinine Ratio 22.6 (8-20); C Reactive Protein 186.19 mg/L (<8.01); EGFR African American 70.4 (>60); EGFR Non-African American 58.2 (>60); Globulin 2.9 g/dL (2-4); Total Protein 6.7 g/dL (6.4-8.9)
[2019-01-21 12:08] VITALS: BP 119/77
== END 2019-01-21 11:50 | disposition home or self-care (01) ==
LOC: ED 09:06
DX: M54.16 Radiculopathy, lumbar region (principal); R21 Rash and other nonspecific skin eruption; I10 Essential (primary) hypertension; J44.9 Chronic obstructive pulmonary disease, unspecified; J45.909 Unspecified asthma, uncomplicated; F03.90 Unspecified dementia, unspecified severity, without behavioral disturbance, psychotic disturbance, mood disturbance, and anxiety; F32.9 Major depressive disorder, single episode, unspecified; C50.919 Malignant neoplasm of unspecified site of unspecified female breast
CPT/HCPCS: 36415; 80053; 85025; 86140; 96374; 99282; J1885

== ENCOUNTER 2019-03-01 10:56 | Emergency (ER) | payer MEDICARE, BC ==
--- OUTSIDE RECORDS SUMMARY | 2019-03-01 12:03 | XMS REPORT | Summary of Care ---
:1940 Author Organization [facility] Address 1 [facility] [place] [address] Care Team Providers Name Role Phone Carlos Fernández MD Primary Care Provider Mauro Ospina Unavailable Osorio Corrigan MD Unavailable Unavailable Reason for Visit Reason Comments ER F/U Patient was at ER on 01/21/2019 for pain from head to toe. Encounter Details Date Type Department Care Team Description 01/25/2019 Office Visit [place] [facility] Carlos Fernández, Lumbar radiculopathy, acute (Primary Dx); Medicine Fibromyalgia; [address] [facility] Short-term memory loss; [place] [address] [place] [address] CRP elevated [phone] Allergies Active Allergy Reactions Severity Noted Date Comments Bee Unknown Reaction 12/01/2017 Hydrocodone Other 02/19/2016 Over sedation; knocks her right out. Methylprednisolone Rash High 01/15/2019 Omeprazole Other 11/29/2016 Patient can not remember Oxycodone Other 09/14/2015 documented as of this encounter (statuses as of 01/25/2019) Medications Medication Sig Dispensed Refills Start End Date Status Date daily vitamin PO Take 1 Tab by 0 Active TABS mouth DAILY. docusate sodium Take 100 mg by 0 Active (COLACE) 100 MG mouth TWICE Oral Cap DAILY. Calcium Take by mouth 0 Active Carb-Cholecalcifer TWICE DAILY. ol 600-500 MG-UNIT Oral TABLET SR 24 HR Nutritional Take 1 Each by 60 Bottle 11 Active Supplements mouth TWICE 7 (ENSURE CLEAR) DAILY. Oral Liquid PROAIR HFA 108 (90 INHALE 1 PUFF 8.5 Inhaler 3 Active Base) MCG/ACT EVERY 4 HOURS 8 Inhalation Aero NEEDED FOR Soln FOR SHORTNESS OF BREATH fluticasone [place] 2 Sprays 3 Bottle 3 Active (FLONASE) 50 in nose DAILY. 9 MCG/ACT Nasal Suspension BREO ELLIPTA INHALE 1 PUFF 60 Each 5 Active 200-25 MCG/INH BY MOUTH EVERY 9 Inhalation AEROSOL DAY POWDER, BREATH ACTIVATED nitroglycerin PLACE 1 TAB 90 Tab 0 Active (NITROSTAT) 0.4 MG UNDER TONGUE 9 Sublingual SL Tab EVERY FIVE MINUTES NEEDED (ESOPHOGEAL SPASM). amitriptyline Take 1 Tab by 90 Tab 5 Active (ELAVIL, ENDEP) 25 mouth EVERY 9 MG Oral Tab BEDTIME. alendronate TAKE 1 TABLET 12 Tab 3 Active (FOSAMAX) 70 MG BY MOUTH ONE 9 Oral Tab TIME PER WEEK duloxetine TAKE 1 CAPSULE 90 Cap 1 Active (CYMBALTA) 30 MG BY MOUTH EVERY 9 Oral CAPSULE DAY ENTERIC COATED PARTICLESIndicatio ns: Generalized anxiety disorder naproxen TAKE 1 TABLET 180 Tab 5 Active (NAPROSYN) 500 MG BY MOUTH TWICE 9 Oral Tab A DAY tramadol (ULTRAM) Take 1 Tab by 60 Tab 0 Active 50 MG Oral Tab mouth TWO 9 TIMES DAILY NEEDED (pain). Max Daily Amount: 100 mg. tramadol (ULTRAM) Take 50 mg by 0 01/26/20 Discontinued 50 MG Oral Tab mouth EVERY 19 (Dose EIGHT HOURS Adjustment) NEEDED. 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 Overview: Right foot sensory neuropathy documented as of this encounter (statuses as of 01/25/2019) Resolved Problems Problem Noted Date Resolved Date Generalized anxiety disorder 09/01/2017 01/17/2019 Bursitis of right hip 02/16/2017 09/01/2017 Osteoporosis, unspecified 09/29/2011 10/01/2017 Overview: t score -2.1 bone density scan 2007 alendronate prescription Osteoporosis, 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 09/24/2009 Overview: Dexa scan 02/27: t score -2.1 hip Depression 12/31/2008 07/22/2017 Overview: Citalopram treatment [address] [place] [address] Noelle Alfordo 11/26/2008 05/05/2010 Overview: 1953 [...] as of this encounter (statuses as of 01/25/2019) Immunizations Name Administration Dates Next Due DTAP [...] Sign Reading Time Taken Comments Blood Pressure 124/70 01/25/2019 2:23 PM EDT Pulse 70 01/25/2019 2:23 PM EDT Temperature - - Respiratory Rate - - Oxygen Saturation - - Inhaled Oxygen Concentration - - Weight 66.7 kg (147 lb) 01/25/2019 2:23 PM EDT Height 163.8 cm (5' 4.5") 01/25/2019 2:23 PM EDT Body Mass Index 24.84 01/25/2019 2:23 PM EDT documented in this encounter Patient Instructions Patient InstructionsCarlos Fernández MD - 01/25/2019 [facility] to get to tramadol 1/2 pill at bedtime Lumbar radiculopathy caused the pain Bone density scan this month and blood test same day documented in this encounter Progress Notes Carlos Fernández MD - 01/25/2019 2:20 PM EDT PATIENT: Vicky Renae : 1940 DATE OF SERVICE: 01/25/2019 CHIEF COMPLAINT: Chief Complaint Patient presents with ER F/U Patient was at ER on 01/21/2019 for pain from head to toe. Subjective HISTORY OF PRESENT ILLNESS: Vicky Renae is a 78-y.o. female. HPI Here for follow up to [facility] emergency room for lumbar radiculopathy it is now resolved she was given iv non steroidal anti- inflammatory drug and now using tramadol uses twice daily Shewants to wean off this she has trouble with short term memory and I advised her not to use more than1 pill at bedtime She sees Md in pain clinic Her rash is now resolved She asks about alendronate And she did not get her bone density scan set up CRP was elevated in ER 186 she denies other joint symptoms Patient Active Problem List Diagnosis Breast cancer [...] Cancer Mother Heart Mother Angina Heart Father [place] No Known Problems Sister Dementia Sister Current [...] DAY fluticasone (FLONASE) 50 MCG/ACT Nasal Suspension [place] 2 Sprays in nose DAILY. naproxen (NAPROSYN) 500 MG Oral Tab TAKE 1 TABLET BY MOUTH TWICE A DAY nitroglycerin (NITROSTAT) 0.4 MG Sublingual SL Tab PLACE 1 TAB UNDER TONGUE EVERY FIVE MINUTES NEEDED (ESOPHOGEAL SPASM). Nutritional Supplements (ENSURE CLEAR) Oral Liquid Take 1 Each by mouth TWICE DAILY. PROAIR HFA 108 (90 Base) MCG/ACT Inhalation Aero Soln INHALE 1 PUFF EVERY 4 HOURS NEEDED FOR FOR SHORTNESS OF BREATH tramadol (ULTRAM) 50 MG Oral Tab Take 1 Tab by mouth TWO TIMES DAILY NEEDED (pain). Max Daily Amount: 100 mg. No current facility-administered medications for this visit. [...] file Gets together: Not on file Attends yazidism service: Not on file Active member of [...] Not Asked Social History Narrative Lives in [place], [place]- Does not go to [place] anymore r/t health issues Retired from [employer] 3 step sons; not in close contact, not local ROS no cardiovascular symptoms no gastro-intestinal symptoms Objective PHYSICAL EXAM: VITALS: BP 124/70 | Pulse 70 | Ht 5' 4.5" (1.638 m) | Wt 147 lb (66.7 kg) | BMI 24.84 kg/mBody mass index is 24.84 kg/m. Physical Exam I note only benign skin findings. No unusual rashes or suspicious skin lesions noted. Nails appearnormal. Mental status exam; she is alert, orient to time, person and place. Normal thought content, speech, affect, mood and dress are noted. Bilateral Lumbar muscle tenderness L3-5 level Negative straight leg-raise bilateral ASSESSMENT / IMPRESSION: ICD-9-CM ICD-10-CM 1. Lumbar radiculopathy, acute avoid daily use tramadol try 1/2 50 mg pill at bedtime 724.4 M54.16 2. Fibromyalgia continue duloxitene and amitryptiline low doses 729.1 M79.7 3. Short-term memory loss 780.93 R41.3 4. CRP elevated repeat esr crp and complete blood count 790.95 R79.82 CBC WITH DIFFERENTIAL COMPREHENSIVE METABOLIC PANEL SEDIMENTATION RATE C-REACTIVE PROTEIN VITAMIN D 25 HYDROXY (PEDRO) Patient Instructions Follow up [facility] pain clinic Try to get to tramadol 1/2 pill at bedtime Lumbar radiculopathy caused the pain Bone density scan this month and blood test same day Carlos Fernández MD 01/25/2019 15:36 documented in this encounter Plan of Treatment Date Type Specialty Care Team Description 01/31/2019 Lab Internal Medicine 01/31/2019 Ancillary Procedure Radiology 02/26/2019 Office Visit Pulmonary Loy Mallory MD [address] [place] [address] [phone] 04/04/2019 Chronic Care Management Family Practice 08/17/2019 Ocular Visit Optometry Justyn Serrano, OD [address] [place] [address] [phone] Name Type Priority Associated Diagnoses Order Schedule CBC WITH DIFFERENTIAL Lab Routine CRP elevated Expected: 01/25/2019 (Approximate), Expires: 07/24/2019 COMPREHENSIVE METABOLIC Lab Routine CRP elevated Expected: 01/25/2019 PANEL (Approximate), Expires: 07/24/2019 SEDIMENTATION RATE Lab Routine CRP elevated Expected: 01/25/2019 (Approximate), Expires: 07/24/2019 C-REACTIVE PROTEIN Lab Routine CRP elevated Expected: 01/25/2019 (Approximate), Expires: 07/24/2019 VITAMIN D 25 HYDROXY Lab Routine CRP elevated Expected: 01/25/2019 (PEDRO) (Approximate), Expires: 07/24/2019 Health Maintenance Due Date Last Done Comments HIV SCREENING 09/24/1955 ZOSTER IMMUNIZATION SERIES 04/16/2016 02/20/2016, 02/20/2009 (2 of 3) INFLUENZA VACCINE (#1) 2019 01/21/2018, 01/27/2017, 02/16/2011, Additional history exists DEPRESSION SCREENING 04/03/2019 04/03/2018 [...] Problems Progress Blood Pressure Blood Pressure Essential 124/70 No [place], < 140/90 hypertension, (01/25/2019 Carlos Delgado, benign 2:23 PM EDT) Note: Hypertension Care Plan Based [...] Educational Resources. record my blood pressure results. [facility] is safe and secure way for you [...] Educational Resources: National Heart, Lung, & Blood [place] http://nhlbi.nih.gov/hbp/index.html The DASH Diet Eating Plan http://www.nhlbi.nih.gov/health/health-topics/ topics/dash/ Academy of Nutrition & DIetetics http://eatright.org National Smoking Cessation Site http://smokefree.gov Blood Pressure < Blood Pressure 124/70 (01/25/2019 No Jesenia Ayon FNP 150/90 2:23 PM EDT) Note: This is an individualized [...] filedocumented in this encounter Visit Diagnoses Diagnosis Lumbar radiculopathy, acute - Primary Thoracic or lumbosacral neuritis or radiculitis, unspecified Fibromyalgia Mylagia and myositis, unspecified Short-term memory loss Memory loss CRP elevated Elevated C-reactive protein (CRP) documented in this encounter (Work) documented as of this encounter Advance Directives Type Date Recorded Patient [employer] Explanation Advance Directives 10/08/2013 12:33 PM Health Care Proxy
--- OUTSIDE RECORDS SUMMARY | 2019-03-01 12:03 | XMS REPORT | Summary of Care ---
:1940 Author Organization [facility] Address [address] [address] Care Team Providers Name Role Phone Carlos Fernández Primary Care Provider Mauro Ospina Unavailable Osorio Corrigan MD Unavailable Unavailable Claudette Del Rosario [employer] Worker Unavailable Reason for Referral Diagnostic Testing (Routine) Status Reason Specialty Diagnoses / Referred By Referred To Procedures Contact Contact Authorized Diagnoses Asthma, unspecified asthma severity, unspecified whether complicated, unspecified whether persistent Loy Mallory MD Procedures PFT ROUTINE STUDIES [address] [place] [address] Reason for Visit Reason Comments Asthma Encounter Details Date Type Department Care Team Description 02/26/2019 Office Visit [facility] Loy Mallory MD Asthma, unspecified asthma severity, unspecified whether complicated, unspecified whether persistent (Primary Dx); [address] Chronic rhinitis [place] [id number] [place] [address] Allergies Active Allergy Reactions Severity Noted Date Comments Bee Unknown Reaction 12/01/2017 Hydrocodone Other 02/19/2016 Over sedation; knocks her right out. Methylprednisolone Rash High 01/15/2019 Omeprazole Other 11/29/2016 Patient can not remember Oxycodone Other 09/14/2015 documented as of this encounter (statuses as of 02/26/2019) Medications Medication Sig Dispensed Refills Start Date [...] FOR FOR SHORTNESS OF BREATH fluticasone (FLONASE) [place] 2 Sprays in 3 Bottle 3 10/17/2018 Active 50 MCG/ACT Nasal nose DAILY. Suspension BREO ELLIPTA 200-25 INHALE 1 PUFF BY 60 Each 5 10/25/2018 Active MCG/INH Inhalation MOUTH EVERY DAY AEROSOL POWDER, BREATH ACTIVATED nitroglycerin PLACE 1 TAB UNDER 90 Tab 0 10/25/2018 Active (NITROSTAT) 0.4 MG TONGUE EVERY FIVE Sublingual SL Tab MINUTES NEEDED (ESOPHOGEAL SPASM). amitriptyline Take 1 [...] DAY ENTERIC COATED PARTICLESIndications: Generalized anxiety disorder naproxen (NAPROSYN) TAKE 1 TABLET BY 180 Tab 5 01/23/2019 Active 500 MG Oral Tab MOUTH TWICE A DAY tramadol (ULTRAM) 50 Take 1 Tab by 60 Tab 0 01/25/2019 Active MG Oral Tab mouth TWO TIMES DAILY NEEDED (pain). Max Daily Amount: 100 mg. albuterol HFA Take 2 Puffs by 1 Inhaler 5 02/07/2019 Active (VENTOLIN) 108 (90 inhalation EVERY Base) MCG/ACT FOUR HOURS Inhalation Aero Soln NEEDED (short of breath). 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 Overview: Right foot sensory neuropathy documented as of this encounter (statuses as of 02/26/2019) Resolved Problems Problem Noted Date Resolved Date Generalized anxiety disorder 09/01/2017 01/17/2019 Bursitis of right hip 02/16/2017 09/01/2017 Osteoporosis, unspecified 09/29/2011 10/01/2017 Overview: t score -2.1 bone density scan 2007 alendronate prescription Osteoporosis, 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 09/24/2009 Overview: Dexa scan 02/27: t score -2.1 hip Depression 12/31/2008 07/22/2017 Overview: Citalopram treatment [address] [place] [address] Noelle Hutson 11/26/2008 05/05/2010 Overview: 1953 Infectious mononucleosis 11/26/2008 [...] as of this encounter (statuses as of 02/26/2019) Immunizations Name Administration Dates Next Due DTAP [...] Sign Reading Time Taken Comments Blood Pressure 122/72 02/26/2019 10:03 AM EDT Pulse 87 02/26/2019 10:03 AM EDT Temperature 36.4 02/26/2019 10:03 AM EDT C (97.6 F) Respiratory Rate - - Oxygen Saturation 97% 02/26/2019 10:03 AM EDT RA Inhaled Oxygen Concentration - - Weight 67.1 kg (148 lb) 02/26/2019 10:03 AM EDT Height 163.8 cm (5' 4.5") 02/26/2019 10:03 AM EDT Body Mass Index 25.01 02/26/2019 10:03 AM EDT documented in this encounter Progress Notes Loy Mallory MD - 02/26/2019 10:40 AM EDT PATIENT: Vicky Renae : 1940 DATE OF SERVICE: 02/26/2019 SUBJECTIVE: Vicky Renae is a 78-y.o. female who returns for follow up of her asthma and chronic rhinitis associated with increased cough. The patient is generally been breathing okay. Cough is only occasional. She is not bringing up more than small amounts of sputum which is not purulent. The patient does have some continued nasal congestion and postnasal drainage. No significant dyspnea. She has had influenza vaccine. SMOKING: None since 2017 MEDICATIONS: albuterol HFA (VENTOLIN) 108 (90 Base) MCG/ACT Inhalation Aero Soln alendronate (FOSAMAX) 70 MG Oral Tab amitriptyline (ELAVIL, ENDEP) 25 MG Oral Tab BREO ELLIPTA 200-25 MCG/INH Inhalation AEROSOL POWDER, BREATH ACTIVATED Calcium Carb-Cholecalciferol 600-500 MG-UNIT Oral TABLET SR 24 HR daily vitamin PO TABS docusate sodium (COLACE) 100 MG Oral Cap duloxetine (CYMBALTA) 30 MG Oral CAPSULE ENTERIC COATED PARTICLES fluticasone (FLONASE) 50 MCG/ACT Nasal Suspension naproxen (NAPROSYN) 500 MG Oral Tab nitroglycerin (NITROSTAT) 0.4 MG Sublingual SL Tab Nutritional Supplements (ENSURE CLEAR) Oral Liquid PROAIR HFA 108 (90 Base) MCG/ACT Inhalation Aero Soln tramadol (ULTRAM) 50 MG Oral Tab OBJECTIVE: General: Well-developed, overweight elderly woman in no significant distress. VS: BP 122/72 | Pulse 87 | Temp 97.6 F (36.4 C) (Temporal) | Ht 5' 4.5" (1.638 m) | Wt 148 lb (67.1 kg) | SpO2 97% Comment: RA | BMI 25.01 kg/m RR: No tachypnea. HEENT: The oropharynx is clear. There is moderate nasal congestion. Chest: The chest wall is symmetric. Breath sounds are good intensity and clear. Heart: Regular rate and rhythm. Extremities: No lower extremity edema. ASSESSMENT/PLAN: 1. Asthma. 2. Chronic rhinitis. The patient is remaining reasonably stable. She will continue her current respiratory medications.The patient will be reevaluated in pulmonary clinic in 6 months with pulmonary function studies. Author: Loy Mallory MD 02/26/2019 10:00 documented in this encounter Plan of Treatment Date Type Specialty Care Team Description 03/07/2019 Office Visit Internal Medicine Carlos Fernández MD [address] [place] [address] [phone] 03/07/2019 Ancillary Procedure Radiology 04/04/2019 Chronic Care Management Family Practice 08/17/2019 Ocular Visit Optometry Justyn Serrano, OD [address] OPTOMETRY [place] [address] 08/23/2019 Appointment Pulmonary 08/23/2019 Office Visit Pulmonary Loy Mallory MD [address] [address] Name Type Priority Associated Diagnoses Order Schedule PFT ROUTINE STUDIES Pulmonary Routine Asthma, unspecified Expected: 2018, asthma severity, Expires: 08/25/2019 unspecified whether complicated, unspecified whether persistent Health Maintenance Due Date Last Done Comments HIV SCREENING 09/24/1955 ZOSTER IMMUNIZATION SERIES 04/16/2016 02/20/2016, 02/20/2009 (2 of 3) INFLUENZA VACCINE (#1) 2019 01/21/2018, 01/27/2017, 02/16/2011, Additional history exists DEPRESSION SCREENING 04/03/2019 04/03/2018 FALL RISK ASSESSMENT 04/03/2019 04/03/2018, 04/03/2018 MEDICARE ANNUAL WELLNESS 04/03/2019 04/03/2018, 01/14/2017, VISIT 09/27/2014, Additional history exists OSTEOPOROSIS SCREENING 01/31/2029 01/31/2019, 02/25/2016, 10/06/2011, Additional history exists PNEUMOCOCCAL 65+YRS Completed 01/14/2017, 12/21/2004 HPV IMMUNIZATION SERIES Aged Out No longer eligible based on patient's age to complete this topic MENINGOCOCCAL VACCINE IMM Aged Out No longer eligible based on patient's age to complete this topic documented as of this encounter Goals Goal Patient Goal Associated Recent Patient-Stated? Author Type Problems Progress Blood Pressure Blood Pressure Essential 122/72 No [place], < 140/90 hypertension, (02/26/2019 Carlos Delgado, benign 10:03 AM EDT) Note: Hypertension Care Plan Based on [...] Educational Resources: National Heart, Lung, & Blood [place] http://nhlbi.nih.gov/hbp/index.html The DASH Diet Eating Plan http://www.nhlbi.nih.gov/health/health-topics/ topics/dash/ Academy of Nutrition & DIetetics http://eatright.org National Smoking Cessation Site http://smokefree.gov Blood Pressure < Blood Pressure 122/72 (02/26/2019 No Jesenia Ayon FNP 150/90 10:03 AM EDT) Note: This is an individualized treatment [...] filedocumented in this encounter Visit Diagnoses Diagnosis Asthma, unspecified asthma severity, unspecified whether complicated, unspecified whether persistent - Primary Chronic rhinitis documented in this encounter (Work) documented as of this encounter Advance Directives Type Date Recorded 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
--- NOTE | 2019-03-01 12:36 | ED ---
Skin Complaint - HPI Summary HPI Summary: Patient is a 78 y/o F presenting to [facility] with complaints of mass on her right buttocks. She woke up with Sx this morning, 03/01/19, but had no Sx last night, 02/28/19. Patient reports difficulty getting out of bed and states that she had difficulty sitting in a chair. Patient makes note of a fall that occurred in June 2016, when she fell six feet and landed on her buttock, but otherwise denies any recent trauma. No bruising or redness to the area is noted. She additionally states that her pants were abnormally tight this morning. She is a former social smoker, drinks alcohol daily, vodka and red wine, and denies substance usage. PMHx of HTN, asthma, COPD, fibromyalgia, polio, hepatitis is noted. She states that she had polio at age 12. Patient reports that she has a right drop foot with no other deficits. PSHx of hysterectomy, shoulder and knee surgeries. FMHx of cardiac disease noted. On triage, pain is rated 4/10, nothing is noted to aggravate/alleviate Sx. Friend, Jeannie, is in the room. Home medications and allergies are reviewed. Initial vitals are temp of 96.9 F, pulse of 88, rep rate of 19, BP of 132/75, and pulse ox of 100. Allergies Allergy/AdvReac Type Severity Reaction Status Date / Time methylprednisolone Allergy Severe See Comment Verified 03/01/19 11:06 oxycodone AdvReac Severe Altered Verified 03/01/19 11:06 Mental Status - History of Current Complaint Chief Complaint: EDRashSkinAbscess Stated Complaint: SKIN ISSUE PER PT Hx Obtained From: Patient Onset/Duration: Started Hours Ago, Still Present Timing: Constant, Lasting Hours Current Severity: Moderate Pain Intensity: 4 Pain Scale Used: 0-10 Numeric Skin Location: Other: - right buttock Character: Pain Aggravating Symptom(s): Other: - getting out of bed and sitting in chair Alleviating Symptom(s): Nothing Associated Signs & Symptoms: Negative - Allergy/Home Medications Allergies/Adverse Reactions: Allergies Allergy/AdvReac Type Severity Reaction Status Date / Time methylprednisolone Allergy Severe See Comment Verified 03/01/19 11:06 oxycodone AdvReac Severe Altered Verified 03/01/19 11:06 Mental Status PMH/Surg Hx/FS Hx/Imm Hx Endocrine/Hematology History: Denies: Hx Anticoagulant Therapy, Hx Diabetes Cardiovascular History: Reports: Hx Hypertension Denies: Hx Pacemaker/ICD Respiratory History: Reports: Hx Asthma - uses inhaled medications, Hx Chronic Obstructive Pulmonary Disease (COPD), Other Respiratory Problems/Disorders - MULTIPLE SINUS INFECTIONS GI History: Reports: Other GI Disorders - hepatitis History: Denies: Hx Renal Disease Musculoskeletal History: Reports: Hx Arthritis - BILATERAL KNEES, HANDS, NECK, BACK, Hips, Hx Back Problems, Hx Fibromyalgia Sensory History: Reports: Hx Contacts or Glasses Denies: Hx Hearing Aid Opthamlomology History: Reports: Hx Contacts or Glasses Neurological History: Reports: Hx Dementia, Other Neuro Impairments/Disorders - HX OF POLIO 1952, with foot drop on right;PAIN CL[facility]IC PT Psychiatric History: Reports: Hx Depression - ON MEDICATION Denies: Hx Panic Disorder - Cancer History Cancer Type, Location and Year: IN [place] Hx Chemotherapy: Yes - Surgical History Surgery Procedure, Year, and Place: 1978 HYSTERECTOMY, [facility] [place]. 1998 LEFT BREAST SURGERY, INSITU, [facility] [place]. 1999 RIGHT KNEE ARTHROSCOPIC SURGERY, [facility] [place]. 2003 HEART CATHERIZATION, [place]. 2004 LEFT HAND / INDEX FINGER SURGERY FOR DOG BITE, [facility] [place]. 2004 RIGHT FOOT SURGERY WITH 3 SCREWS. 2005 LEFT KNEE ARTHROSCOPIC SURGERY, [facility] [place]. 2005 FULL SHOULDER REPLACEMENT, [facility]. 2010 RIGHT KNEE ARTHROSCOPIC SURGERY, [facility] [place]. 2012 BILATERAL KNEE REPLACEMENT Hx Anesthesia Reactions: Yes - DISLOCATION OF JAW WITH INTUBATION, 1974, 2005, 2010 Infectious Disease History: Yes - hx polio Infectious Disease History: Reports: Hx Hepatitis - 1958 - NO PROBLEMS SINCE, Hx Shingles Denies: Traveled Outside the [place] in Last 30 Days - Family History Known Family History: Positive: Cardiac Disease, Other - Negative: CVA Negative: Diabetes - Social History Alcohol Use: Weekly Hx Substance Use: No Substance Use Type: Reports: None Hx Tobacco Use: No Smoking Status (MU): Never Smoked Tobacco Review of Systems Negative: Fever - on vitals, temp is 96.9 F Cardiovascular: Negative Respiratory: Negative Gastrointestinal: Negative Positive: no symptoms reported Musculoskeletal: Negative Skin: Other - positive - right buttock mass, no redness, no trauma Negative: Bruising Neurological: Negative Psychological: Normal All Other Systems Reviewed And Are Negative: Yes Physical Exam - Summary Physical Exam Summary: Appearance: Well-appearing, moderate pain distress, well-nourished Skin: Nurse, [place], chaperoned, right buttock with indurated mass with fluctuant edges that is 6 by 9 CM, no redness, no bruising. Warm, color reflects adequate perfusion, dry Head: Normal Head/Face inspection, atraumatic Eyes: Conjunctiva clear ENT: Normal inspection Neck: Supple, no nodes, no JVD Respiratory: Lungs clear, normal breath sounds, no respiratory distress Cardio: RRR, No murmur, pulses normal, brisk capillary refill Abdomen: Soft, minimal tenderness of LLQ Bowel sounds: Present Musculoskeletal: Strength Intact/ROM intact, no calf tenderness, no edema. Psychological: Normal Neuro: Alert, weakness of right foot with dorsal flexion that is chronic, "due to polio"; otherwise, no focal deficits. Triage Information Reviewed: Yes Vital Signs On Initial Exam: Initial Vitals Temp Pulse Resp BP Pulse Ox 96.9 F 88 19 132/75 100 03/01/19 11:02 03/01/19 11:02 03/01/19 11:02 03/01/19 11:02 03/01/19 11:02 Vital Signs Reviewed: Yes Procedures - Sedation Patient Received Moderate/Deep Sedation with Procedure: No Diagnostics - Vital Signs Vital Signs Temp Pulse Resp BP Pulse Ox 03/01/19 11:02 96.9 F 88 19 132/75 100 - Laboratory Lab Statement: Any lab studies that have been ordered have been reviewed, and results considered in the medical decision making process. - Ultrasound SOFT TISSUE US Ultrasound Interpretation Completed By: Radiologist Summary of Ultrasound Findings: SOFT TISSUE US IMPRESSION: Hypoechoic mass in the region of the right buttocks where patient feels a palpable mass. THIS REPORT WAS REVIEWED BY DR. QUINONES. Re-Evaluation - Re-Evaluation First Eval Re-Evaluation Time: 15:03 Change: Unchanged Comment: US was discussed with the patient. No change in the mass while in the ED. No new sxs have developed. She will be discharged to home. Patient is agreeable with this and will follow up with PCP and any additional referral as needed. Course/Dx - Course Course Of Treatment: Patient is a 78 y/o F presenting to [facility] with complaints of mass on her right buttocks. She woke up with Sx this morning, 03/01/19, but had no Sx last night, 02/28/19. Patient reports difficulty getting out of bed and states that she had difficulty sitting in a chair. Patient makes note of a fall that occurred in June 2016, when she fell six feet and landed on her buttock, but otherwise denies any recent trauma. No bruising or redness to the area is noted. On physical exam, right buttock with indurated mass with fluctuant edges that is 6 by 9 CM, no redness, no bruising. SOFT TISSUE US IMPRESSION: Hypoechoic mass in the region of the right buttocks where patient feels a palpable mass. US was discussed with the patient. She will be discharged to home. Patient is agreeable with this and will follow up with PCP and additional referral as needed. - Differential Diagnoses - Skin Complaint Differential Diagnoses: Foreign Body, Other - neoplasm, abscess - Diagnoses Provider Diagnoses: Soft tissue mass Discharge ED - Sign-Out/Discharge Documenting (check all that apply): Patient Departure - discharge - Discharge Plan Condition: Stable Disposition: HOME Patient Education Materials: Soft Tissue Mass (ED) Referrals: Carlos Fernández MD [Primary Care Provider] - Additional Instructions: We have given you a copy of the ultrasound that you had done today. We have also given you a copy of the disc that we will allow the next physician to evaluate this to see the actual films. You will need definite follow-up for further evaluation of this. Dr. Fernández will be able to refer you as needed. Based on the ultrasound results you do not need emergency care for this mass right now. You may take acetaminophen or ibuprofen as directed for pain. You may want to try a donut cushion for sitting. Please return to the ER if you have any new or worsening symptoms. - Billing Disposition and Condition Condition: STABLE Disposition: Home - Attestation Statements Document Initiated by Shannan: Yes Documenting Scribe: RIDDHI VELAZQUEZ Provider For Whom Shannan is Documenting (Include Credential): GONZALO QUINONES MD Scribe Attestation: RIDDHI Smith scribed for GONZALO QUINONES MD on 03/20/19 at [id number]. Scribe Documentation Reviewed: Yes Provider Attestation: The documentation as recorded by the RIDDHI harrell accurately reflects the service I personally performed and the decisions made by me, GONZALO QUINONES MD Status of Scribe Document: Viewed
[2019-03-01 15:16] VITALS: BP 154/89
== END 2019-03-01 15:14 | disposition home or self-care (01) ==
LOC: ED 10:56
DX: R22.2 Localized swelling, mass and lump, trunk (principal); I10 Essential (primary) hypertension; J44.9 Chronic obstructive pulmonary disease, unspecified; F03.90 Unspecified dementia, unspecified severity, without behavioral disturbance, psychotic disturbance, mood disturbance, and anxiety; F32.9 Major depressive disorder, single episode, unspecified; Z88.5 Allergy status to narcotic agent; Z88.8 Allergy status to other drugs, medicaments and biological substances; Z90.710 Acquired absence of both cervix and uterus; Z96.611 Presence of right artificial shoulder joint; Z96.653 Presence of artificial knee joint, bilateral; Z79.899 Other long term (current) drug therapy
CPT/HCPCS: 99282

== ENCOUNTER 2019-03-23 09:02 | Emergency (ER) | payer MEDICARE, BC ==
--- NOTE | 2019-03-23 09:28 | ED ---
Complex/Multi-Sys Presentation - HPI Summary HPI Summary: Patient is a 78 y/o F presenting to [facility] with chief complaint of midsternal chest pain. She reports that the pain has been present for the past five days and constant. Radiation of pain to her back ribs is reported but the patient denies radiation of pain to her neck or arms. Patient endorses SOB and states that deep breaths exacerbate pain. She states that her "stomach is double what it should be". Patient reports no edema. She notes that she took tramadol yesterday with no relief in Sx. Breast cancer history is noted, patient is in remission. PMHx of HTN, asthma, COPD, fibromyalgia, polio, hepatitis is noted. She states that she had polio at age 12. Patient reports that she has a right drop foot with no other deficits. PSHx of hysterectomy, shoulder and knee surgeries. Patient denies Hx of diabetes and HLD. FMHx of [place] in father, who at age 72, is noted. No FMHx of aneurysms reported. In room, vitals are pulse 86, o2 99, BP 163/115. Pt does not report any fever, chills, erythema of eyes, sore throat, cough, abdominal pain, N/V, dysuria, hematuria, myalgia, edema, rash, or dizziness. On triage, pain is rated 7/10. Home medications and allergies are reviewed. - History Of Current Complaint Chief Complaint: EDChestPainROMI Time Seen by Provider: 03/23/19 09:19 Hx Obtained From: Patient Onset/Duration: Lasting Days, Still Present Timing: Constant, Days Severity Currently: Severe Location: Pain At: - chest Aggravating Factor(s): deep breaths Alleviating Factor(s): nothing Associated Signs And Symptoms: Positive: SOB, Chest Pain, Other - "stomach is double what it should be"; does not report any fever, chills, erythema of eyes, sore throat, cough, abdominal pain, N/V, dysuria, hematuria, myalgia, edema, rash, or dizziness. Negative: Edema - Allergies/Home Medications Allergies/Adverse Reactions: Allergies Allergy/AdvReac Type Severity Reaction Status Date / Time methylprednisolone Allergy Severe See Comment Verified 03/23/19 09:09 oxycodone AdvReac Severe Altered Verified 03/23/19 09:09 Mental Status Home Medications: Home Medications Albuterol HFA INHALER* [Ventolin HFA Inhaler*] 2 puff INH Q4H PRN 03/23/19 [ History Confirmed 03/23/19] Albuterol inh POWDER (NF) [Proair Respiclick] 1 puff INH Q4H PRN 03/23/19 [ History Confirmed 03/23/19] Alendronate (NF) [Fosamax (NF)] 70 mg PO WEEKLY 03/23/19 [History Confirmed 06/10] DULoxetine DR CAP* [Cymbalta CAP*] 30 mg PO DAILY 03/23/19 [History Confirmed ] Fluticasone NASAL SPRAY 50MCG* [Flonase NASAL SPRAY 50MCG*] 2 spray BOTH NARES DAILY 03/23/19 [History Confirmed 03/23/19] Naproxen TAB* [Naprosyn 250 mg TAB*] 500 mg PO BID 03/23/19 [History Confirmed 03/23/19] Nitroglycerin TAB 0.4 MG* 0.4 mg SL Q5M PRN 03/23/19 [History Confirmed 03/23/19 ] Nut.tx.impaired Digest Fxn [Ensure Clear] 237 ml PO BID 03/23/19 [History Confirmed 03/23/19] PMH/Surg Hx/FS Hx/Imm Hx Endocrine/Hematology History: Denies: Hx Anticoagulant Therapy, Hx Diabetes Cardiovascular History: Reports: Hx Hypertension Denies: Hx Pacemaker/ICD Respiratory History: Reports: Hx Asthma - uses inhaled medications, Hx Chronic Obstructive Pulmonary Disease (COPD), Other Respiratory Problems/Disorders - MULTIPLE SINUS INFECTIONS GI History: Reports: Other GI Disorders - hepatitis History: Denies: Hx Renal Disease Musculoskeletal History: Reports: Hx Arthritis - BILATERAL KNEES, HANDS, NECK, BACK, Hips, Hx Back Problems, Hx Fibromyalgia Sensory History: Reports: Hx Contacts or Glasses Denies: Hx Hearing Aid Opthamlomology History: Reports: Hx Contacts or Glasses Neurological History: Reports: Hx Dementia, Other Neuro Impairments/Disorders - HX OF POLIO 1953, with foot drop on right;PAIN CLINIC PT Psychiatric History: Reports: Hx Depression - ON MEDICATION Denies: Hx Panic Disorder - Cancer History Cancer Type, Location and Year: IN [place] Hx Chemotherapy: Yes - Surgical History Surgery Procedure, Year, and Place: 1978 HYSTERECTOMY, [facility]. 1998 LEFT BREAST SURGERY, INSITU, [facility] [place]. 1999 RIGHT KNEE ARTHROSCOPIC SURGERY, [facility] [place]. 2003 HEART CATHERIZATION, [place]. 2004 LEFT HAND / INDEX FINGER SURGERY FOR DOG BITE, [facility] [place]. 2004 RIGHT FOOT SURGERY WITH 3 SCREWS. 2006 LEFT KNEE ARTHROSCOPIC SURGERY, [facility] [place]. 2006 FULL SHOULDER REPLACEMENT, [facility]. 2010 RIGHT KNEE ARTHROSCOPIC SURGERY, [facility] [place]. 2012 BILATERAL KNEE REPLACEMENT Hx Anesthesia Reactions: Yes - DISLOCATION OF JAW WITH INTUBATION, 1974, 2005, 2010 - Immunization History Date of Influenza Vaccine: 02/20/2019 Infectious Disease History: No Infectious Disease History: Reports: Hx Hepatitis - 1958 - NO PROBLEMS SINCE, Hx Shingles Denies: Traveled Outside the [place] in Last 30 Days - Family History Known Family History: Positive: Cardiac Disease, Other - Negative: CVA Negative: Diabetes - Social History Alcohol Use: Weekly Alcohol Amount: 7 Hx Substance Use: No Substance Use Type: Reports: None Hx Tobacco Use: No Smoking Status (MU): Never Smoked Tobacco Review of Systems Negative: Fever, Chills Negative: Erythema Negative: Sore Throat Positive: Chest Pain Positive: Shortness Of Breath. Negative: Cough Gastrointestinal: Other - "stomach is double what it should be" Negative: Abdominal Pain, Vomiting, Nausea Negative: dysuria, flank pain Negative: Myalgia, Edema Negative: Rash Neurological: Other - negative - dizziness All Other Systems Reviewed And Are Negative: Yes Physical Exam - Summary Physical Exam Summary: Constitutional: Well-developed, Well-nourished, Alert. (-) Distressed Skin: Warm, Dry HENT: Normocephalic; Atraumatic Eyes: Conjunctiva normal Neck: Musculoskeletal ROM normal neck. (-) JVD, (-) Stridor, (-) Tracheal deviation Cardio: Rhythm regular, rate normal, Heart sounds normal; Intact distal pulses; The pedal pulses are 2+ and symmetric. Radial pulses are 2+ and symmetric. (-) Murmur Pulmonary/Chest wall: Effort normal. (-) Respiratory distress, (-) Wheezes, (-) Rales Abd: Soft, (-) tenderness, (-) Distension, (-) Guarding, (-) Rebound Musculoskeletal: (-) Edema Lymph: (-) Cervical adenopathy Neuro: Alert, Oriented x3 Psych: Mood and affect Normal Triage Information Reviewed: Yes Vital Signs On Initial Exam: Initial Vitals Temp Pulse Resp BP Pulse Ox 98.1 F 91 20 171/92 100 03/23/19 09:08 03/23/19 09:08 03/23/19 09:08 03/23/19 09:08 03/23/19 09:08 Vital Signs Reviewed: Yes Procedures - Sedation Patient Received Moderate/Deep Sedation with Procedure: No Diagnostics - Vital Signs Vital Signs Temp Pulse Resp BP Pulse Ox 03/23/19 09:08 98.1 F 91 20 171/92 100 - Laboratory Result Diagrams: 03/23/19 09:47 03/23/19 09:47 Lab Statement: Any lab studies that have been ordered have been reviewed, and results considered in the medical decision making process. - Radiology CXR Radiology Interpretation Completed By: Radiologist Summary of Radiographic Findings: CXR IMPRESSION: No acute cardiopulmonary process by radiograph. THIS REPORT WAS REVIEWED BY DR. MUNOZ. - CT CTA CHEST/THORAX CT Interpretation Completed By: Radiologist Summary of CT Findings: CTA CHEST/THORAX IMPRESSION: No pulmonary embolus is noted. Chronic interstitial disease. THIS REPORT WAS REVIEWED BY DR. MUNOZ. - EKG 0910 Cardiac Rate: NL - rate of 80 BPM EKG Rhythm: Sinus Rhythm Summary of EKG Findings: EKG showed NSR with rate of 80 BPM, no STEMI. This EKG was reviewed and interpreted by Dr. Munoz. Re-Evaluation - Re-Evaluation First Eval Re-Evaluation Time: 11:41 Comment: Discussed admission and need to optimize BP with the patient, but she declined. HEART score of 4, which is moderate risk. Extensive discussion was held with the patient regarding the risks of admission, including disability and . Despite this extensive discussion, the patient understands the risks of leaving AMA and still wishes to leave AMA. Patient is alert and oriented x3 and capable of making decisions for herself. Complex Multi-Symp Course/Dx Course Of Treatment: Patient is a 78 y/o F presenting to [facility] with chief complaint of midsternal chest pain. She reports that the pain has been present for the past five days and constant. Radiation of pain to her back ribs is reported but the patient denies radiation of pain to her neck or arms. Patient endorses SOB and states that deep breaths exacerbate pain. Physical exam is unremarkable. EKG showed NSR with rate of 80 BPM, no STEMI. Bloodwork was obtained. MCH 98, MCH 34, BUN/creatinine ratio 24.7, glucose 105. First trop was negative. During ED course, patient received Lopressor 25 mg PO. CXR IMPRESSION: No acute cardiopulmonary process by radiograph. CTA CHEST/THORAX IMPRESSION: No pulmonary embolus is noted. Chronic interstitial disease. Discussed admission and need to optimize BP with the patient, but she declined. HEART score of 4, which is moderate risk. Extensive discussion was held with the patient regarding the risks of admission, including disability and . Despite this extensive discussion, the patient understands the risks of leaving AMA and still wishes to leave AMA. Patient is alert and oriented x3 and capable of making decisions for herself. Patient was prescribed Metoprolol and advised to follow up with PCP. - Diagnoses Provider Diagnoses: Chest pain, HTN (hypertension) Discharge ED - Sign-Out/Discharge Documenting (check all that apply): Patient Departure - AMA - Discharge Plan Condition: Fair Disposition: AGAINST MEDICAL ADVICE Prescriptions: Metoprolol Tartrate TAB* [Lopressor TAB*] 25 mg PO QAM #5 tab Metoprolol Tartrate TAB* [Lopressor TAB*] 25 mg PO QAM #7 tab Patient Education Materials: Hypertension (ED), Chest Pain (ED) Referrals: Carlos Fernández MD [Primary Care Provider] - Additional Instructions: YOU ARE NOT BEING DISCHARGED, YOU ARE LEAVING AGAINST MEDICAL ADVICE. YOU ARE ADVISED TO MEDICATION SPECIALIST A BLOOD PRESSURE CUFF. PLEASE RETURN TO ED FOR ANY NEW OR CONCERNING SYMPTOMS. PLEASE FOLLOW UP WITH YOUR PRIMARY CARE PHYSICIAN WITHIN 2- 3 DAYS. - Attestation Statements Document Initiated by Scribe: Yes Documenting Scribe: RIDDHI VELAZQUEZ Provider For Whom Yvettee is Documenting (Include Credential): ZULEIKA MUNOZ MD Scribe Attestation: RIDDHI Smith, scribed for ZULEIKA MUNOZ MD on 03/23/19 at 1413. Status of Scribe Document: Ready
--- OUTSIDE RECORDS SUMMARY | 2019-03-23 09:48 | XMS REPORT | Summary of Care ---
:1940 Author Organization [facility] Address [address] [place] [address] Care Team Providers Name Role Phone Carlos Fernández Primary Care Provider Mauro Ospina Unavailable Osorio Corrigan MD Unavailable Unavailable Claudette Del Rosario Fusing Furnace Loader Unavailable Reason for Referral MRI/CAT/PET Scan (Routine) Status Reason Specialty Diagnoses / Procedures Referred By Contact Referred To Contact Closed Diagnoses Soft tissue mass Carlos Fernández, Procedures US LOWER EXTREMITY NON VASCULAR LIMITED RIGHT [address] [place] [address] Refer to Department Only (Routine) Status Reason Specialty Diagnoses / Referred By Referred To Procedures Contact Contact Pending Review PAIN CLINIC Diagnoses Chronic pain syndrome Carlos Fernández MD [address] [place] [address] Edwin Iglesias Reason for Visit Reason Comments Discuss Patient Care Patient states she no longer wants to see Dr. Torres. Encounter Details Date Type Department Care Team Description 03/07/2019 Office Visit [facility] Carlos Fernández, Fibromyalgia ( Primary Dx); Medicine Post concussion syndrome; [address] [facility] [address] Chronic pain syndrome; [place] [address] [place] [address] Soft tissue mass [phone] Allergies Active Allergy Reactions Severity Noted Date Comments Bee Unknown Reaction 12/01/2017 Hydrocodone Other 02/19/2016 Over sedation; knocks her right out. Methylprednisolone Rash High 01/15/2019 Omeprazole Other 11/29/2016 Patient can not remember Oxycodone Other 09/14/2015 documented as of this encounter (statuses as of 03/07/2019) Medications Medication Sig Dispensed Refills Start Date [...] FOR FOR SHORTNESS OF BREATH fluticasone (FLONASE) [place] 2 Sprays in 3 Bottle 3 10/17/2018 [...] Take 2 Puffs by 1 Inhaler 5 02/28/2019 Active (VENTOLIN) 108 (90 inhalation EVERY Base) MCG/ACT FOUR HOURS Inhalation Aero Soln NEEDED (short of breath). 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 Overview: Right foot sensory neuropathy documented as of this encounter (statuses as of 03/07/2019) Resolved Problems Problem Noted Date Resolved Date Generalized anxiety disorder 09/01/2017 01/17/2019 Bursitis of right hip 02/16/2017 09/01/2017 Hx of dysplastic nevus 11/29/2016 03/07/2019 Essential hypertension, benign 09/12/2012 03/07/2019 Osteoporosis, unspecified 09/29/2011 10/01/2017 Overview: t score -2.1 bone density scan 2007 alendronate prescription Osteoporosis, 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 09/24/2009 Overview: Dexa scan 02/27: t score -2.1 hip Depression 12/31/2008 07/22/2017 Overview: Citalopram treatment [address] [facility] [address] Noelle Hutson 11/26/2008 05/05/2010 Overview: 1953 [...] as of this encounter (statuses as of 03/07/2019) Immunizations Name Administration Dates Next Due DTAP Vaccine 09/20/2004 Influenza (IM) Preservative Free 02/02/2018, 01/21/2018, 02/16/2011, 03/05/2010, 03/27/2009 Influenza Vaccine High Dose 02/16/2019, 01/27/2017 Influenza Virus Vaccine - Whole 03/26/2008, [...] Sign Reading Time Taken Comments Blood Pressure 120/70 03/07/2019 10:16 AM EDT Pulse 68 03/07/2019 10:16 AM EDT Temperature - - Respiratory Rate - - Oxygen Saturation - - Inhaled Oxygen Concentration - - Weight 64 kg (141 lb) 03/07/2019 10:16 AM EDT Height 163.8 cm (5' 4.5") 03/07/2019 10:16 AM EDT Body Mass Index 23.83 03/07/2019 10:16 AM EDT documented in this encounter Patient Instructions Patient InstructionsEstill, Carlos R, MD - 03/07/2019 10:20 AM EDTRepeat ultrasound of the right buttock this month [facility] referral Dr Edwin Iglesias we will send records over to him and he will contact you Mammogram today 10: 39 AM EDT documented in this encounter Progress Notes Carlos Fernández MD - 03/07/2019 10:20 AM EDT PATIENT: Vicky Renae : 1940 DATE OF SERVICE: 03/07/2019 CHIEF COMPLAINT: Chief Complaint Patient presents with Discuss Patient Care Patient states she no longer wants to see Dr. Torres. Subjective HISTORY OF PRESENT ILLNESS: Vicky Renae is a 78-y.o. female. 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 Generalized osteoarthritis Osteopenia S/P right knee arthroscopy Tinnitus of both ears 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 alendronate (FOSAMAX) 70 MG Oral Tab TAKE [...] DAY fluticasone (FLONASE) 50 MCG/ACT Nasal Suspension [place] 2 Sprays in nose DAILY. naproxen (NAPROSYN) [...] file Gets together: Not on file Attends cheondoism service: Not on file Active member of [...] Not Asked Social History Narrative Lives in [place], [place]- Does not go to [place] anymore r/t health issues Retired from [employer] 3 step sons; not in close contact, not local ROS no new memory symptoms No focal neuro symptoms No new joint symptoms Objective PHYSICAL EXAM: VITALS: BP 120/70 | Pulse 68 | Ht 5' 4.5" (1.638 m) | Wt 141 lb (64 kg) | BMI 23.83 kg/m Body mass index is 23.83 kg/m. Physical Exam right buttock mobile non tender subcutaneous mass about 1x1 cm no erythema or heat to touch she hasextensive right buttock ecchymosis Full range of motion right hip I spent 25 minutes with the patient, greater than half of this in direct face to face counseling addressing the current condition and the plan of care. ASSESSMENT / IMPRESSION: ICD-9-CM ICD-10-CM 1. Fibromyalgia continue amitryptiline at bedtime and duloxitene low dose 729.1 M79.7 2. Post concussion syndrome 310.2 F07.81 3. Chronic pain syndrome refer to Dr Iglesias 338.4 G89.4 REFER TO PAIN CLINIC 4. Soft tissue mass follow up ultrasound likely hematoma buttock 729.99 M79.89 US LOWER EXTREMITY NON VASCULAR LIMITED RIGHT Patient Instructions Repeat ultrasound of the right buttock this month [facility] referral Dr Edwin Iglesias we will send records over to him and he will contact you Mammogram today Carlos Fernández MD 03/07/2019 15:21 documented in this encounter Plan of Treatment Date Type Specialty Care Team Description 04/04/2019 Chronic Care Management Family Practice 08/17/2019 Ocular Visit Optometry Justyn Serrano, OD [address] [facility] [place] [address] 08/23/2019 Appointment Pulmonary 08/23/2019 Office Visit Pulmonary Loy Mallory MD [address] [place] [address] Name Type Priority Associated Diagnoses Date/Time US LOWER EXTREMITY NON Imaging Routine Soft tissue mass 03/07/2019 11:58 AM EDT VASCULAR LIMITED RIGHT Name Type Priority Associated Diagnoses Order Schedule US LOWER EXTREMITY NON Imaging Routine Soft tissue mass Expected: 2018, VASCULAR LIMITED RIGHT Expires: 03/06/2020 Name Type Priority Associated Diagnoses Order Schedule REFER TO PAIN CLINIC Referral Routine Chronic pain syndrome Expected: 03/07, Expires: 03/07/2020 Health Maintenance Due Date Last Done Comments HIV SCREENING 09/24/1955 ZOSTER IMMUNIZATION SERIES 04/16/2016 02/20/2016, 02/20/2009 (2 of 3) INFLUENZA VACCINE (#1) 2019 02/02/2018, 01/21/2018, 01/27/2017, Additional history exists DEPRESSION SCREENING [...] Problems Progress Blood Pressure Blood Pressure Essential 120/70 No [place], < 140/90 hypertension, (03/07/2019 Carlos Delgado, benign 10:16 AM EDT) Note: Hypertension Care Plan Based [...] Educational Resources: National Heart, Lung, & Blood M[place] http://nhlbi.nih.gov/hbp/index.html The DASH Diet Eating Plan http://www.nhlbi.nih.gov/health/health-topics/ topics/dash/ Academy of Nutrition & DIetetics http://eatright.org National Smoking Cessation Site http://smokefree.gov Blood Pressure < Blood Pressure 120/70 (03/07/2019 No Jesenia Ayon FNP 150/90 10:16 AM EDT) Note: This is an individualized [...] This is an individualized self-management goal for iVcky Renae: Please take all prescribed medications as [...] filedocumented in this encounter Visit Diagnoses Diagnosis Fibromyalgia - Primary Mylagia and myositis, unspecified Post concussion syndrome Postconcussion syndrome Chronic pain syndrome Soft tissue mass Disorders of soft tissue, unspecified documented in this encounter (Work) documented as of this encounter Advance Directives Type Date Recorded Patient Risk And Compliance Analytics Director Explanation Advance Directives 10/08/2013 12:33 PM Health Care Proxy
[2019-03-23 09:55] LABS: ABS Eosinophils 0.1 10^3/ul (0-0.6); ABS Lymphocytes 1.4 10^3/ul (1.0-4.8); ABS Monocytes 0.5 10^3/ul (0-0.8); ABS Neutrophils 4.5 10^3/ul (1.5-7.7); Eosinophil % 1.2 %; Hematocrit 42 % (35-47); Hemoglobin 14.5 g/dL (12.0-16.0); Lymphocyte % 21.7 %; Mean Corpuscular HGB Conc 34 g/dL (31-36); Mean Corpuscular Hemoglobin 34 pg (27-31); Mean Corpuscular Volume 98 fL (80-97); Platelet Count 173 10^3/uL (150-450); Red Cell Distribution Width 14 % (10-15); White Blood Count 6.6 10^3/uL (3.5-10.8)
[2019-03-23 10:13] LABS: Albumin 4.1 g/dL (3.2-5.2); Albumin/Globulin Ratio 1.7 (1-3); BUN/Creatinine Ratio 24.7 (8-20); Calcium 9.4 mg/dL (8.6-10.3); EGFR African American 78.1 (>60); EGFR Non-African American 64.5 (>60); Globulin 2.4 g/dL (2-4); Potassium 3.9 mmol/L (3.5-5.0); Total Bilirubin 0.8 mg/dL (0.2-1.0); Total Protein 6.5 g/dL (6.4-8.9)
[2019-03-23 10:14] LABS: Troponin I 0.01 ng/mL (<0.04)
[2019-03-23] MEDS ORDERED: Iohexol 350* (CONTRAST) 500 ML MDV IV ONE (10:21)
[2019-03-23] MEDS ORDERED: Metoprolol Tartrate TAB* 25 MG PO ONE (11:44)
[2019-03-23 14:16] VITALS: BP 158/83
== END 2019-03-23 14:15 | disposition left against medical advice (07) ==
LOC: ED 09:02
DX: R07.89 Other chest pain (principal); I10 Essential (primary) hypertension; R06.02 Shortness of breath; J44.9 Chronic obstructive pulmonary disease, unspecified; F32.9 Major depressive disorder, single episode, unspecified; F03.90 Unspecified dementia, unspecified severity, without behavioral disturbance, psychotic disturbance, mood disturbance, and anxiety; Z96.611 Presence of right artificial shoulder joint; Z96.653 Presence of artificial knee joint, bilateral; Z88.5 Allergy status to narcotic agent; Z88.8 Allergy status to other drugs, medicaments and biological substances
CPT/HCPCS: 36415; 71045; 71275; 80053; 83605; 84484; 85025; 93005; 99283; Q9967

== ENCOUNTER 2019-10-18 16:55 | Observation (INO) ==
[2019-10-18] MEDS ORDERED: Nitro 2% OINT (Nitroglycerin) 1 INCH/PAK TOPICAL ONE (17:53)
[2019-10-18 18:40] LABS: ABS Eosinophils 0.2 10^3/ul (0-0.6); ABS Lymphocytes 1.7 10^3/ul (1.0-4.8); ABS Monocytes 0.5 10^3/ul (0-0.8); Eosinophil % 2.3 %; Hematocrit 41 % (35-47); Hemoglobin 13.9 g/dL (12.0-16.0); Lymphocyte % 26.7 %; Mean Corpuscular HGB Conc 34 g/dL (31-36); Mean Corpuscular Hemoglobin 33 pg (27-31); Mean Corpuscular Volume 98 fL (80-97); Mean Platelet Volume 8.1 fL (7.4-10.4); Nucleated Red Blood Cells % 0.1; Platelet Count 207 10^3/uL (150-450); Red Blood Count 4.19 10^6 /uL (3.70-4.87); Red Cell Distribution Width 13 % (10-15); White Blood Count 6.6 10^3/uL (3.5-10.8)
[2019-10-18 19:03] LABS: Albumin 4.5 g/dL (3.2-5.2); Albumin/Globulin Ratio 1.7 (1-3); BUN/Creatinine Ratio 34.7 (8-20); Calcium 9.9 mg/dL (8.6-10.3); EGFR African American 66.1 (>60); EGFR Non-African American 54.6 (>60); Globulin 2.6 g/dL (2-4); Potassium 3.9 mmol/L (3.5-5.0); Total Bilirubin 0.7 mg/dL (0.2-1.0); Total Protein 7.1 g/dL (6.4-8.9)
[2019-10-18 19:04] LABS: Troponin I 0.01 ng/mL (<0.03)
[2019-10-18 20:36] LABS: HDL Cholesterol 65.6 mg/dL
[2019-10-18] MEDS ORDERED: Albuterol HFA INHALER 8 gm MDI INH PRN (22:00)
[2019-10-19] MEDS: Mometasone/Formoter 200/5 MDI INH SCH ×2 (02:49→07:57)
[2019-10-19 07:11] LABS: BUN/Creatinine Ratio 29.5 (8-20); Calcium 9.1 mg/dL (8.6-10.3); EGFR African American 74.8 (>60); EGFR Non-African American 61.8 (>60)
[2019-10-19] MEDS ORDERED: Azelastine 0.15% NASAL(NF) 30 ML BTL BOTH NARES SCH (09:00)
[2019-10-19] MEDS ORDERED: Fluticasone NASAL SPRAY 50MCG 16 gm SPRAY BTL INTRANASAL SCH (09:00)
[2019-10-19] MEDS ORDERED: Multivitamins/Minerals TAB PO SCH (09:00)
[2019-10-19] MEDS ORDERED: Regadenoson 0.4 MG/5 ML SYRINGE ONE (09:39)
[2019-10-19] MEDS ORDERED: Aminophylline 25 MG/ML VIAL ONE (09:40)
[2019-10-19 12:01] VITALS: BP 151/89
== END 2019-10-19 13:24 | disposition home or self-care (01) ==
LOC: MEDTELE 16:55 → ED 16:55 → MEDTELE 22:23
PROVIDERS: ADMIT Internal Medicine; ATTEND Internal Medicine

== ENCOUNTER 2023-12-15 09:51 | Inpatient (IN) ==
[~2023-12-15 09:51] MED LIST: Lactated Ringers 1000 ml BAG 1,000 ML IV SCH; NS 0.45% 1000 ml BAG 1,000 ML IV SCH; Naloxone 0.4 mg VIAL 0.4 mg/ml 1 ml VIAL IV PRN; Ondansetron 4 mg VIAL 2 MG/ML 2 ml VIAL IV PRN
[2023-12-15] MEDS ORDERED: ceFAZolin 2 GM in NS PREMIX 2 GM/100 ML BAG IVPB ONE (10:30)
[2023-12-15 11:09] LABS: Rapid COVID-19 Molecular Undetected (Undetected)
[2023-12-15] MEDS: Buffered Lidocaine 1% SYRIN 1 ml INTRADERM ONE (11:14)
[2023-12-15] MEDS ORDERED: Rocuronium 50 mg VIAL 10 mg/ml 5 ml VIAL (50 mg) ONE ×2 (11:42→14:38)
[2023-12-15] MEDS ORDERED: Lidocaine 2% PF 5 ML VIAL ONE (11:44)
[2023-12-15] MEDS ORDERED: fentaNYL 100 mcg/2 ml 50 MCG/ML VIAL ONE ×2 (11:44→16:52)
[2023-12-15] MEDS ORDERED: Propofol 10 MG/ML 20 ML BTL ONE (11:44)
[2023-12-15] MEDS ORDERED: ROPIVACAINE 5 MG/ML 30 ML BTL (0.5%) ONE (13:26)
[2023-12-15] MEDS ORDERED: Dexamethasone IV 4 MG/ML VIAL 1 ml VIAL ONE (14:21)
[2023-12-15] MEDS ORDERED: Ondansetron 4 mg VIAL 2 MG/ML 2 ml VIAL ONE (14:21)
[2023-12-15] MEDS ORDERED: HYDROmorphone 0.5 MG/0.5 ML SYRINGE ONE (14:24)
[2023-12-15] MEDS ORDERED: Morphine 2 MG/ML SYRINGE IV PRN (16:46)
[2023-12-15] MEDS ORDERED: Ondansetron ODT 4 mg TAB 4 MG TAB PO PRN (16:46)
[2023-12-15] MEDS ORDERED: Lactulose 30 ml UDC PO PRN (16:46)
[2023-12-15] MEDS ORDERED: Calcium Carb (TUMS) 500 mg CHEW TAB PO PRN (16:46)
[2023-12-15] MEDS ORDERED: Magnesium Hydroxide LIQ 30 ML UDC PO PRN (16:46)
[2023-12-15] MEDS ORDERED: Ondansetron 4 mg VIAL 2 MG/ML 2 ml VIAL IV PRN (16:46)
[2023-12-15] MEDS: fentaNYL 100 mcg/2 ml 50 MCG/ML VIAL IV PRN (16:53)
[2023-12-15] MEDS: Lactated Ringers 1000 ml BAG 1,000 ML IV SCH (18:42)
[2023-12-15] MEDS: ceFAZolin 2 GM in NS PREMIX 2 GM/100 ML BAG IVPB SCH (21:31)
[2023-12-15] MEDS ORDERED: Albuterol HFA INHALER 8 gm MDI INH PRN (21:46)
[2023-12-16] MEDS: Magnesium Hydroxide LIQ 30 ML UDC PO SCH (00:47)
[2023-12-16] MEDS: Acetaminophen IV 1 GM/100ML 1,000 MG/100 ML BAG IV ONE (02:03)
[2023-12-16 02:47] LABS: High Sensitivity Troponin 1 Hr 11 pg/mL (<15)
[2023-12-16 06:14] LABS: Hematocrit 36.9 % (35-45); Hemoglobin 12.6 g/dL (11.5-14.3); Mean Platelet Volume 8.2 fL (7.5-11.2); Platelet Count 128 10^3/uL (150-450)
[2023-12-16 06:49] LABS: Calcium 8.8 mg/dL (8.6-10.3); Creatinine, Serum 0.89 mg/dL (0.51-0.95); Potassium 4.8 mmol/L (3.5-5.0); eGFR CKD-EPI 63.9 (>60)
[2023-12-16] MEDS: Vitamin THERAPEUTIC TAB PO SCH (12:00)
[2023-12-16] MEDS: NF:Fluticasone/Vilanterol MDI(NF) 200/25 MDI INH SCH (13:42)
[2023-12-16 14:12] VITALS: BP 111/65
== END 2023-12-16 17:15 | disposition home or self-care (01) | DRG 470 ==
LOC: OR 09:51 → SSU 09:51 → OBSVTOIN 17:54 → SSU 12-16 03:43
PROVIDERS: ADMIT Orthopaedic Surgery Adult Reconstructive Orthopaedic Surgery; ATTEND Orthopaedic Surgery Adult Reconstructive Orthopaedic Surgery